=== PATIENT | female | born 1990 | race Caucasian/White ===

== ENCOUNTER → 2017-07-21 | Day surgery (SDC) | payer BC ==
[2017-07-19 23:01] VITALS: BMI 24.4
[~2017-07-21] MED LIST: GLYCOPYRROLATE 0.2 MG/ML 2 ML VIAL ONE; LACTATED RINGERS 1,000 ML IV SCH; LIDOCAINE 1% 20 ML VIAL (10MG/ML) FOR IV START INTRADERMA ONE; LIDOCAINE 1% INJ 10MG/ML (20 ML MDV) ONE; MIDAZOLAM 2 MG/2 ML VIAL ONE; PROPOFOL 10 MG/ML 20 ML VIAL IV ONE; fentaNYL (PF) 50 MCG/ML 2 ML AMP ONE
[2017-07-21 12:42] VITALS: RESP 16; TEMP 99.2
--- NOTE | 2017-07-21 14:18 | P.GSHP ---
History of Present Illness H&P Date: 07/21/17 Chief Complaint: GI Bleed This a 26-year-old female for from Dr. Vieyra. Patient presents today for EGD and colonoscopy. She's had issues rectal bleeding. - Constitutional Constitutional: Reports as per HPI Past Medical History Past Medical History: GERD/Reflux Additional Past Medical History / Comment(s): endometriosis, constipation, blood in stool, anemia, History of Any Multi-Drug Resistant Organisms: None Reported Additional Past Surgical History / Comment(s): ovarian cyst removal Past Anesthesia/Blood Transfusion Reactions: No Reported Reaction Smoking Status: Never smoker - Past Family History Mother Family Medical History: No Reported History Additional Family Medical History / Comment(s): blood clot "in her head" Medications and Allergies Home Medications Medication Instructions Recorded Confirmed Type Etonogestrel/Ethinyl Estradiol 1 each VG DIRECTED 11/17/15 07/21/17 History [Nuvaring Vaginal Ring] Ondansetron Odt [Zofran ODT] 4 mg PO TID PRN 07/18/17 07/21/17 History Allergies Allergy/AdvReac Type Severity Reaction Status Date / Time No Known Allergies Allergy Verified 07/18/17 10:47 Surgical - Exam Vital Signs Temp Pulse Resp BP Pulse Ox 99.2 F 66 16 112/71 98 07/21/17 12:34 07/21/17 12:34 07/21/17 12:34 07/21/17 12:34 07/21/17 12:34 - General well developed, no distress - Eyes PERRL - ENT normal pinna - Neck no masses - Respiratory normal expansion - Cardiovascular Rhythm: regular - Abdomen Abdomen: soft, non tender Assessment and Plan Assessment: GI bleed. We'll perform EGD and colonoscopy.
--- NOTE | 2017-07-21 14:38 | P.OP ---
Date of Procedure: 07/21/17 Preoperative Diagnosis: GI bleed Postoperative Diagnosis: Antral gastritis Normal colon No evidence of upper or lower GI bleed Procedure(s) Performed: EGD Colonoscopy Anesthesia: MAC Surgeon: Pablo Flower Pathology: other (Antrum) Condition: stable Disposition: PACU Description of Procedure: PROCEDURE: The patient was placed on the endoscopy table in the lateral position. Digital rectal examination was performed which revealed no abnormalities. Flexible colonoscope was then placed in the patient's anus and passed throughout the entire colon. The ileocecal valve was visualized. The cecum, ascending, transverse, descending and sigmoid colon were normal. The rectum was normal as well. There were no masses, polyps or diverticula noted in the entire colon. There is no evidence of any blood in the colon or rectum. Next the gastroscope placed oropharynx and passed into the esophagus into the stomach. Scope was then placed through the pylorus. The first and second portion of the duodenum appeared normal. Scope was then brought back the antrum this appeared mildly inflamed. A biopsies performed. The scope was unretroflexed and remainder stomach appeared normal. No significant hiatal hernia. The GE junction was at 40 cm. The distal esophagus appeared normal. The proximal esophagus appeared normal. Scope was withdrawn for patient. There was no evidence of upper GI bleed.
[2017-07-21 15:02] VITALS: BP 109/77; PULSE 87
== END | disposition home or self-care (01) ==
LOC: ORWHC2ENDO 11:35
PROVIDERS: ATTEND Surgery
DX: K29.50 Unspecified chronic gastritis without bleeding (principal); K21.9 Gastro-esophageal reflux disease without esophagitis; Z79.3 Long term (current) use of hormonal contraceptives
CPT/HCPCS: 81025; 88305; 88342; 45378; 43239; J2250; J2001; J3010; J2704

== ENCOUNTER → 2018-01-15 | Outpatient (CLI) | payer OTHER ==
--- NOTE | 2018-01-15 13:55 | US ---
EXAMINATION TYPE: US transvaginal DATE OF EXAM: 01/15/2018 COMPARISON: NONE CLINICAL HISTORY: 27-year-old female N92.6 Irregular menstruation, unspecified. Patient states she bl ed for around 30 days straight. Has Nuvaring control. Cramping TECHNIQUE: Transvaginal sonographic images of the pelvis were acquired. Date of LMP: Unsure of exact start date FINDINGS: Uterus: Anteverted measuring 8.3 x 3.5 x 4.3 cm Endometrial Stripe: 0.4 cm, within normal limits. Right Ovary: 4.2 x 1.9 x 2.8 cm for a volume of 11.6 mL. Follicular change is present, dominant foll icle or functional cyst measuring 2.0 cm. Left Ovary: 2.8 x 1.6 x 2.1 cm for a volume of 5.0 mL. Small follicles are present within. No evidence of adnexal abnormality or cul-de-sac free fluid. IMPRESSION: Follicular change in both ovaries. No specific abnormality seen.
== END | disposition home or self-care (01) ==
LOC: RADUSWWP 12:35
PROVIDERS: ATTEND Family Medicine
DX: N92.6 Irregular menstruation, unspecified (principal)
CPT/HCPCS: 76830

== ENCOUNTER 2018-07-05 16:55 | Emergency (ER) | payer OTHER ==
[2018-07-05 17:20] VITALS: TEMP 98.1
[2018-07-05] MEDS ORDERED: ACET/COD 300 MG/30 MG STARTER PACK 6 TAB BTL PO STA ×2 (17:28→18:26)
--- NOTE | 2018-07-05 18:01 | CT ---
EXAMINATION TYPE: CT brain clementineine wo con DATE OF EXAM: 07/05/2018 COMPARISON: 04/19/2014 HISTORY: Patient fell from 12 foot ladder yesterday. Unsure of LOC or injury. Headache and neck pain. CT DLP: 1207.3 mGycm Automated exposure control for dose reduction was used. TECHNIQUE: CT scan of the head and cervical spine are performed without contrast. FINDINGS: Ventricles of normal size. There is no mass effect nor midline shift. There is no sign of intracranial hemorrhage. The calvarium is intact. Cervical vertebra have normal spacing and alignment. Posterior elements are intact. There is no evide nce of a fracture. Skull base is intact. Prevertebral soft tissues appear normal. Facet joints are in tact. IMPRESSION: Normal CT scan of the brain. Normal CT scan cervical spine. No change.
--- NOTE | 2018-07-05 18:03 | XR ---
EXAMINATION TYPE: XR thoracic spine complete DATE OF EXAM: 07/05/2018 COMPARISON: 04/19/2014 HISTORY: Fall. Back pain. TECHNIQUE: 3 views FINDINGS: Thoracic vertebra have fairly normal spacing and alignment. Posterior elements are intact. There is no evidence of compression fracture. There is no thoracic paraspinal mass. IMPRESSION: Negative thoracic spine exam. No change. Minimal thoracic dextroscoliosis noted.
[2018-07-05] MEDS ORDERED: ORPHENADRINE 30 MG/ML 2 ML VIAL IM STA (18:21)
[2018-07-05] MEDS ORDERED: KETOROLAC 30 MG/ML 1 ML VIAL IM STA (18:21)
--- NOTE | 2018-07-05 18:26 | ED ---
Fall HPI - General Chief Complaint: Fall Stated Complaint: [facility] - fall 10' from ladder Time Seen by Provider: 07/05/18 17:20 Source: patient Mode of arrival: ambulatory - History of Present Illness Initial Comments: 27-year-old female patient presents to the emergency department today for evaluation of headache, neck pain, and the thoracic back pain. Patient was at work yesterday when she was about 10 feet up on a ladder when she fell. Patient states that she landed on her knees. She was holding a box of tiles above her head which did end up behind her smashed on the floor so she is unsure if this hit her head or not. She denies any loss of consciousness with the injury. Patient states when she woke this morning she was having pretty significant neck pain radiating up into her head causing a headache. States she is also having some thoracic type back pain. She states the pain is radiating into her shoulders but denies any pain radiation down her arms to her fingers. She denies any numbness or tingling to the upper extremities. States that she is having bilateral knee pain with this as well. States that her toes are somewhat tingly. She states that he was seen and evaluated at urgent care prior to coming in. She did have x-ray of the cervical spine and her knees which were negative for any acute bony abnormalities. They were concerned for her headache so they sent her here for further evaluation and computed tomography scan. Patient denies any chest pain, shortness of breath, dizziness, weakness, abdominal pain, nausea, vomiting, or difficulties with bowel movements or urination. She denies any chance of . - Related Data Home Medications Medication Instructions Recorded Confirmed Etonogestrel/Ethinyl Estradiol 1 ring VG Q21D 11/17/15 07/05/18 [Nuvaring Vaginal Ring] Phentermine HCl [Adipex-P] 37.5 mg PO DAILY 07/05/18 07/05/18 Previous Rx's Medication Instructions Recorded Cyclobenzaprine [Flexeril] 10 mg PO TID #15 tab 07/05/18 Ibuprofen [Motrin] 600 mg PO Q8HR PRN #30 tab 07/05/18 Allergies Allergy/AdvReac Type Severity Reaction Status Date / Time No Known Allergies Allergy Verified 07/05/18 18:00 Review of Systems ROS Statement: Those systems with pertinent positive or pertinent negative responses have been documented in the HPI. ROS Other: All systems not noted in ROS Statement are negative. Past Medical History Past Medical History: GERD/Reflux Additional Past Medical History / Comment(s): endometriosis, constipation, blood in stool, anemia, History of Any Multi-Drug Resistant Organisms: None Reported Additional Past Surgical History / Comment(s): ovarian cyst removal Past Anesthesia/Blood Transfusion Reactions: No Reported Reaction Past Psychological History: No Psychological Hx Reported Smoking Status: Never smoker Past Alcohol Use History: Occasional Past Drug Use History: None Reported - Past Family History Mother Family Medical History: No Reported History Additional Family Medical History / Comment(s): blood clot "in her head" General Exam Limitations: no limitations General appearance: alert, in no apparent distress, other (This is a well- developed, well-nourished adult female patient in no acute distress. Vital signs upon presentation reveals temperature 98.1F, pulse 107, respirations 20, blood pressure 113/84, pulse ox 100% on room air.) Eye exam: Present: normal appearance, PERRL, EOMI. Absent: scleral icterus, conjunctival injection, periorbital swelling ENT exam: Present: normal exam, normal oropharynx, mucous membranes moist Neck exam: Present: normal inspection, full ROM, other (Paraspinal tenderness in the cervical spine). Absent: tenderness, meningismus, lymphadenopathy Respiratory exam: Present: normal lung sounds bilaterally. Absent: respiratory distress, wheezes, rales, rhonchi, stridor Cardiovascular Exam: Present: regular rate, normal rhythm, normal heart sounds. Absent: systolic murmur, diastolic murmur, rubs, gallop, clicks GI/Abdominal exam: Present: soft, normal bowel sounds. Absent: distended, tenderness, guarding, rebound, rigid Back exam: Present: normal inspection, vertebral tenderness (Mild thoracic tenderness) Neurological exam: Present: alert, oriented X3, CN II-XII intact Psychiatric exam: Present: normal affect, normal mood Skin exam: Present: warm, dry, intact, normal color. Absent: rash Course Vital Signs 07/05/18 07/05/18 17:09 18:55 Temperature 98.1 F Pulse Rate 107 H 82 Respiratory 20 14 Rate Blood Pressure 113/84 117/83 O2 Sat by Pulse 100 100 Oximetry Medical Decision Making - Medical Decision Making 27-year-old female patient presents to the emergency department today for evaluation of headache and neck pain as well as thoracic spine pain after falling from a ladder yesterday afternoon. Physical examination did reveal some mild thoracic spinal tenderness. Some paraspinal tenderness over the cervical region. CT brain and C-spine were obtained and showed no acute osseous or intracranial abnormalities. Three-view x-ray of the thoracic spine was obtained and showed no evidence of osseous abnormalities including compression fracture. I did discuss findings and results with the patient. Her symptoms are consistent with cervical strain. She'll be given a prescription for anti-inflammatories and Flexeril. She is instructed to apply warm moist heat to the painful areas. She is instructed to follow-up with her primary care physician for recheck in 1-2 days. Return parameters were discussed in detail. She verbalizes understanding and agrees with this plan. - Radiology Data Radiology results: report reviewed, image reviewed Three-view x-ray of the thoracic spine is obtained. Report was reviewed in its entirety. Impression by Dr. Zheng shows negative thoracic spine exam. No change. Minimal thoracic dextroscoliosis noted. CT brain C-spine without contrast was obtained. Report was reviewed in its entirety. Impression by Dr. Zheng shows normal CT scan of the brain. Normal computed tomography scan cervical spine. No change. Disposition Clinical Impression: Cervical strain, Acute headache Disposition: HOME SELF-CARE Condition: Good Instructions: Cervical Strain (ED), Acute Headache (ED) Additional Instructions: Take medications as directed. Apply warm moist heat to the neck at least 20 minutes at a time 4 times daily. Follow-up with your primary care physician for recheck in 1-2 days. Return immediately for any new, worsening, or concerning symptoms per Prescriptions: Cyclobenzaprine [Flexeril] 10 mg PO TID #15 tab Ibuprofen [Motrin] 600 mg PO Q8HR PRN #30 tab PRN Reason: Pain Is patient prescribed a controlled substance at d/c from ED?: No Referrals: Jonathon Vieyra MD [Primary Care Provider] - 1-2 days Time of Disposition: 18:26
[2018-07-05 19:04] VITALS: BP 117/83; PULSE 82; RESP 14
== END 2018-07-05 18:55 | disposition home or self-care (01) ==
LOC: EC 16:55
DX: S16.1XXA Strain of muscle, fascia and tendon at neck level, initial encounter (principal); R51 Headache; M41.84 Other forms of scoliosis, thoracic region; M54.6 Pain in thoracic spine; M25.562 Pain in left knee; M25.561 Pain in right knee; R20.2 Paresthesia of skin; Z79.899 Other long term (current) drug therapy; Z97.5 Presence of (intrauterine) contraceptive device; W11.XXXA Fall on and from ladder, initial encounter; Y92.69 Other specified industrial and construction area as the place of occurrence of the external cause; Y99.0 Civilian activity done for income or pay
CPT/HCPCS: 72072; 72125; 70450; 99284; 96372 ×2; J2360; J1885

== ENCOUNTER 2018-11-25 19:15 | Emergency (ER) | payer BC, OTHER ==
[2018-11-25 19:34] VITALS: BP 149/77; RESP 16; TEMP 98.4
--- NOTE | 2018-11-25 19:59 | ED ---
General Adult HPI - General Chief complaint: Upper Respiratory Infection Stated complaint: Cough Time Seen by Provider: 11/25/18 19:35 Source: patient, RN notes reviewed Mode of arrival: ambulatory Limitations: no limitations - History of Present Illness Initial comments: Patient is a pleasant 28-year-old female presenting to the emergency department with cough. Symptoms haven't present over the past couple of days. Patient states cough started dry and then has had some green productive sputum. Patient states it is uncomfortable of cough. Patient does have burning in her throat. Patient states her anterior neck was swollen yesterday. No sinus congestion. Patient has had fevers and chills and myalgias. - Related Data Home Medications Medication Instructions Recorded Confirmed Etonogestrel/Ethinyl Estradiol 1 ring VG Q21D 11/17/15 07/05/18 [Nuvaring Vaginal Ring] Phentermine HCl [Adipex-P] 37.5 mg PO DAILY 07/05/18 07/05/18 Previous Rx's Medication Instructions Recorded Cyclobenzaprine [Flexeril] 10 mg PO TID #15 tab 07/05/18 Ibuprofen [Motrin] 600 mg PO Q8HR PRN #30 tab 07/05/18 Albuterol Inhaler [Ventolin Hfa 2 puff INHALATION Q4HR PRN #1 11/25/18 Inhaler] inhaler Azithromycin [Zithromax Z-pack] 250 mg PO DIRECTED #6 tab 11/25/18 Allergies Allergy/AdvReac Type Severity Reaction Status Date / Time No Known Allergies Allergy Verified 11/25/18 19:31 Review of Systems ROS Statement: Those systems with pertinent positive or pertinent negative responses have been documented in the HPI. ROS Other: All systems not noted in ROS Statement are negative. Constitutional: Reports: fever, chills Eyes: Denies: eye pain ENT: Reports: throat pain Respiratory: Reports: cough Cardiovascular: Denies: palpitations Endocrine: Reports: fatigue Gastrointestinal: Denies: abdominal pain Genitourinary: Denies: dysuria Musculoskeletal: Denies: back pain Skin: Denies: rash Neurological: Denies: confusion Past Medical History Past Medical History: GERD/Reflux Additional Past Medical History / Comment(s): endometriosis, constipation, blood in stool, anemia, History of Any Multi-Drug Resistant Organisms: None Reported Additional Past Surgical History / Comment(s): ovarian cyst removal Past Anesthesia/Blood Transfusion Reactions: No Reported Reaction Past Psychological History: No Psychological Hx Reported Smoking Status: Never smoker Past Alcohol Use History: Occasional Past Drug Use History: None Reported - Past Family History Mother Family Medical History: No Reported History Additional Family Medical History / Comment(s): blood clot "in her head" General Exam Limitations: no limitations General appearance: alert, in no apparent distress Head exam: Present: atraumatic Eye exam: Present: normal appearance, PERRL, EOMI ENT exam: Present: other (Pharyngeal erythema) Neck exam: Present: normal inspection. Absent: tenderness, meningismus, lymphadenopathy Respiratory exam: Present: normal lung sounds bilaterally Cardiovascular Exam: Present: regular rate, normal rhythm GI/Abdominal exam: Present: soft. Absent: tenderness Extremities exam: Present: normal inspection. Absent: pedal edema, calf tenderness Neurological exam: Present: alert Psychiatric exam: Present: normal affect, normal mood Skin exam: Present: normal color Course Vital Signs 11/25/18 11/25/18 19:31 20:16 Temperature 98.4 F Pulse Rate 118 H 96 Respiratory 16 Rate Blood Pressure 149/77 O2 Sat by Pulse 99 100 Oximetry Medical Decision Making - Medical Decision Making Patient reexamined and resting comfortably in bed. Patient updated on results and need for follow-up - Lab Data Lab Results 11/25/18 11/25/18 Range/Units 20:15 20:15 Influenza Type A RNA Not Detected (Not Detectd) Influenza Type B (PCR) Not Detected (Not Detectd) Group A Strep Rapid Negative (Negative) - Radiology Data Radiology results: image reviewed (Chest x-ray shows no acute process) Disposition Clinical Impression: Pharyngitis, Bronchitis Disposition: HOME SELF-CARE Condition: Stable Additional Instructions: Please follow-up with primary care physician in the next day or 2 for recheck. Return for difficulty breathing, uncontrolled fever, worsening symptoms or other concerns. [id number] Tylenol or Motrin as needed Prescriptions: Albuterol Inhaler [Ventolin Hfa Inhaler] 2 puff INHALATION Q4HR PRN #1 inhaler PRN Reason: Dyspnea Azithromycin [Zithromax Z-pack] 250 mg PO DIRECTED #6 tab Is patient prescribed a controlled substance at d/c from ED?: No Referrals: Jonathon Vieyra MD [Primary Care Provider] - 1-2 days Time of Disposition: 21:13
--- NOTE | 2018-11-25 20:12 | XR ---
EXAMINATION TYPE: XR chest 2V DATE OF EXAM: 11/25/2018 COMPARISON: EXAMINATION TYPE: XR chest 2V DATE OF EXAM: 11/25/2018 COMPARISON: NONE HISTORY: Fever TECHNIQUE: 2 views FINDINGS: Heart and mediastinum are normal. Lungs are clear. Diaphragm is normal. Bony thorax appears normal. IMPRESSION: Normal chest.
[2018-11-25 20:16] VITALS: PULSE 96
[2018-11-25] MEDS ORDERED: ACETAMINOPHEN TAB 325 MG TAB PO STA (21:10)
[2018-11-25] MEDS ORDERED: IBUPROFEN 400 MG TAB PO STA (21:11)
== END 2018-11-25 21:36 | disposition home or self-care (01) ==
LOC: EC 19:15
DX: J40 Bronchitis, not specified as acute or chronic (principal); J02.9 Acute pharyngitis, unspecified; Z79.3 Long term (current) use of hormonal contraceptives; Z79.899 Other long term (current) drug therapy
CPT/HCPCS: 71046; 87081; 87430; 87502; 99283

== ENCOUNTER → 2018-12-06 | Outpatient (CLI) | payer BC ==
[2018-12-06 13:45] LABS: Basophils % (A) 0 %; Eosinophils % (A) 1 %; HCT 38.3 % (34.0-46.0); HGB 12.6 gm/dL (11.4-16.0); Lymphocytes # (A) 2.3 k/uL (1.0-4.8); Lymphocytes % (A) 37 %; MCH 29.6 pg (25.0-35.0); MCHC 32.8 g/dL (31.0-37.0); MCV 90.2 fL (80.0-100.0); Monocytes # (A) 0.3 k/uL (0-1.0); Monocytes % (A) 6 %; Neutrophils # (A) 3.4 k/uL (1.3-7.7); Neutrophils % (A) 55 %; Platelet Count 338 k/uL (150-450); RBC 4.25 m/uL (3.80-5.40); RDW 12.7 % (11.5-15.5); WBC 6.2 k/uL (3.8-10.6)
[2018-12-06 13:51] LABS: ALT 20 U/L (9-52); AST 24 U/L (14-36); Albumin 4.5 g/dL (3.5-5.0); Alkaline Phosphatase 61 U/L (38-126); Amylase 72 U/L (30-110); Anion Gap 11 mmol/L; Blood Urea Nitrogen 14 mg/dL (7-17); Calcium 9.3 mg/dL (8.4-10.2); Carbon Dioxide 24 mmol/L (22-30); Chloride 104 mmol/L (98-107); Glucose 70 mg/dL (74-99); Lipase 94 U/L (23-300); Sodium 139 mmol/L (137-145); Total Bilirubin 0.7 mg/dL (0.2-1.3); Total Protein 7.7 g/dL (6.3-8.2)
[2018-12-06 13:57] LABS: Potassium 4.5 mmol/L (3.5-5.1)
--- NOTE | 2018-12-06 15:06 | CT ---
EXAMINATION TYPE: CT abdomen pelvis w con DATE OF EXAM: 12/06/2018 COMPARISON: 07/05/2017 INDICATION: Right upper quadrant pain lower abdominal pain vomiting diarrhea DLP: 392.5 mGycm, Automated exposure control for dose reduction was used. CONTRAST: 100 mL of Isovue 300. Study performed without Oral Contrast TECHNIQUE: Axial images were obtained from above the diaphragm to the pubic rami in the axial plane a t 5 mm thick sections. Reconstructed images are reviewed on the computer in the coronal plane. FINDINGS: Limited CT sections are obtained the lung bases. The lung bases are clear. CT ABDOMEN: Liver: Normal Spleen: Normal Pancreas: Normal Adrenal glands: The adrenal glands are normal. Gallbladder: Normal Kidneys: No masses are evident. No hydronephrosis is present. No cysts are present. Delayed images were obtained through the kidneys, which remain unremarkable. Aorta: Normal Inferior vena cava: Normal. CT PELVIS: Loops of bowel within the abdomen and pelvis are normal. There are loops of bowel which are incom pletely distended or lack oral contrast limiting their evaluation. Appendix: Normal as visualized. No suspicious inflammatory changes are evident. Urinary bladder: Normal. Genitourinary structures: Uterus is normal. Adnexal regions are clear. A suspected contraceptive ring is within the vaginal vault. Osseous structures: No suspicious lytic or sclerotic lesions. IMPRESSIONS: 1. No suspicious abnormality to account for right upper right lower quadrant pain and vomiting
== END | disposition home or self-care (01) ==
LOC: RADCTMAIN 12:28
PROVIDERS: ATTEND Nurse Practitioner Family
DX: R10.11 Right upper quadrant pain (principal); R10.31 Right lower quadrant pain; R11.2 Nausea with vomiting, unspecified; R50.9 Fever, unspecified; R63.0 Anorexia; R19.4 Change in bowel habit
CPT/HCPCS: 80053; 82150; 83690; 85025; 74177; 36415; Q9967

== ENCOUNTER → 2018-12-15 | Outpatient (CLI) | payer BC ==
--- NOTE | 2018-12-15 10:51 | NM ---
EXAMINATION TYPE: NM hepatobiliary w EF DATE OF EXAM: 12/15/2018 COMPARISON: NONE HISTORY: Right upper quadrant pain TECHNIQUE: After the intravenous administration of 4.9 mCi Tc 99m Mebrofenin hepatobiliary scintigrap hy is performed. Immediate images post injection. FINDINGS: There is satisfactory initial accumulation of tracer by the liver. The gallbladder is visualized wit hin 12 minutes. The small bowel activity is noted within 14 minutes. At one hour 8 ounces of oral e nsure plus is given to mimic CCK and gallbladder ejection fraction is calculated at 61 %, in the norm al range. Therefore there is no scintigraphic evidence of cystic or common bile duct obstruction to suggest acute cholecystitis or gallbladder dyskinesia. IMPRESSION: NORMAL NUCLEAR MEDICINE HEPATOBILIARY SCAN.
== END | disposition home or self-care (01) ==
LOC: RADNMMAIN 08:50
PROVIDERS: ATTEND Family Medicine
DX: R11.2 Nausea with vomiting, unspecified (principal); R10.11 Right upper quadrant pain
CPT/HCPCS: 78226; A9537

== ENCOUNTER → 2019-01-23 | Outpatient (CLI) | payer BC ==
--- NOTE | 2019-01-23 10:02 | US ---
EXAMINATION TYPE: US transvaginal DATE OF EXAM: 01/23/2019 COMPARISON: NONE CLINICAL HISTORY: R10.84 Abdominal Pain. Nuva ring, endometriosis, pelvic pain TECHNIQUE: Transvaginal (TV). Date of LMP: unknown EXAM MEASUREMENTS: Uterus: 7.0 x 2.9 x 4.8 cm Endometrial Stripe: 0.2 cm Right Ovary: 2.7 x 1.2 x 1.6 cm Left Ovary: 2.6 x 1.7 x 1.6 cm 1. Uterus: Anteverted 2. Endometrium: wnl 3. Right Ovary: follicles noted 4. Left Ovary: follicles noted 5. Bilateral Adnexa: wnl 6. Posterior cul-de-sac: wnl IMPRESSION: Physiologic follicular changes of the ovaries. Otherwise unremarkable pelvic ultrasound.
== END | disposition home or self-care (01) ==
LOC: RADUSWWP 08:54
PROVIDERS: ATTEND Family Medicine
DX: N83.8 Other noninflammatory disorders of ovary, fallopian tube and broad ligament (principal); R10.84 Generalized abdominal pain
CPT/HCPCS: 76830

== ENCOUNTER → 2019-04-25 | Outpatient (CLI) | payer BC ==
--- NOTE | 2019-04-25 09:41 | MR ---
EXAMINATION TYPE: MR brain wo/w con DATE OF EXAM: 04/25/2019 COMPARISON: CT 04/19/2014 HISTORY: Headache /Vertigo TECHNIQUE: Multiplanar, multisequence images of the brain and brainstem is performed without and with IV contras t, utilizing 6 mL intravenous Gadavist . FINDINGS: Diffusion weighted images demonstrate no evidence of a recent infarct or other diffusion ab normality. There is no extra-axial fluid collection or significant white matter signal abnormality. The ventricular system and cisternal spaces are normal in size and appearance. The brain volume is age appropriate. Midline structures demonstrate normal morphology. Cerebellar tonsils are low-lying in position at the level the foramen magnum. No tonsillar beaking. Sella turcica has a normal appearance. No orbital fl attening. No cerebellopontine angle mass.. Post contrast images demonstrate no abnormal enhancement. The dural venous sinuses appear patent. Changes of mild chronic sinusitis. IMPRESSION: 1. Low-lying cerebellar tonsils at the level the foramen magnum. No tonsillar beaking.
== END | disposition home or self-care (01) ==
LOC: RADMRIMAIN 08:16
PROVIDERS: ATTEND Nurse Practitioner Family
DX: J35.8 Other chronic diseases of tonsils and adenoids (principal); R42 Dizziness and giddiness
CPT/HCPCS: 70553; A9585

== ENCOUNTER 2019-04-28 09:07 | Emergency (ER) | payer BC ==
[2019-04-28] MEDS ORDERED: ONDANSETRON 4 MG/2 ML VIAL IVP STA (09:52)
[2019-04-28] MEDS ORDERED: MORPHINE SULFATE 4 MG/ML SYRINGE IV STA (09:52)
[2019-04-28] MEDS ORDERED: SODIUM CHLORIDE 0.9% 1,000 ML IV STA (09:52)
[2019-04-28] MEDS ORDERED: KETOROLAC 30 MG/ML 1 ML VIAL IVP STA (09:52)
[2019-04-28] MEDS ORDERED: PANTOPRAZOLE 40 MG/10 ML VIAL IVP STA (09:52)
[2019-04-28 10:16] LABS: Appearance,Urine Clear (Clear); Bilirubin,Urine Negative (Negative); Blood,Urine Negative (Negative); Color,Urine Yellow; Glucose,Urine (UA) Negative (Negative); Ketones,Urine 1+ (Negative); Leukocyte Esterase,Urine Negative (Negative); Nitrite,Urine Negative (Negative); PH, Urine 6.5 (5.0-8.0); Protein,Urine Trace (Negative); Specific Gravity,Urine 1.026 (1.001-1.035); Urobilinogen,Urine <2.0 mg/dL (<2.0)
[2019-04-28 10:24] LABS: Basophils % (A) 0 %; Eosinophils % (A) 1 %; HCT 38.4 % (34.0-46.0); HGB 12.7 gm/dL (11.4-16.0); Lymphocytes # (A) 2.1 k/uL (1.0-4.8); Lymphocytes % (A) 29 %; MCH 30.8 pg (25.0-35.0); MCHC 33.1 g/dL (31.0-37.0); Mean Platelet Volume 7.2; Monocytes # (A) 0.4 k/uL (0-1.0); Monocytes % (A) 6 %; Neutrophils # (A) 4.6 k/uL (1.3-7.7); Neutrophils % (A) 62 %; Platelet Count 282 k/uL (150-450); RBC 4.13 m/uL (3.80-5.40); RDW 12.7 % (11.5-15.5); WBC 7.4 k/uL (3.8-10.6)
[2019-04-28 10:33] LABS: ALT 23 U/L (9-52); AST 23 U/L (14-36); African American GFR (CKD) >90 (>60 ml/min/1.73 sqM); Albumin 4.2 g/dL (3.5-5.0); Alkaline Phosphatase 61 U/L (38-126); Amylase 75 U/L (30-110); Anion Gap 13 mmol/L; Blood Urea Nitrogen 18 mg/dL (7-17); Calcium 9.6 mg/dL (8.4-10.2); Carbon Dioxide 20 mmol/L (22-30); Chloride 106 mmol/L (98-107); Glucose 91 mg/dL (74-99); Potassium 3.9 mmol/L (3.5-5.1); Sodium 139 mmol/L (137-145); Total Bilirubin 0.6 mg/dL (0.2-1.3); Total Protein 7.5 g/dL (6.3-8.2)
[2019-04-28 10:42] LABS: D-Dimer 0.2 mg/L FEU (<0.60); INR 0.9 (<1.2); Partial Thromboplastin Time 27.4 sec (22.0-30.0); Prothrombin Time 9.9 sec (9.0-12.0)
--- NOTE | 2019-04-28 10:49 | ED ---
Abdominal Pain HPI - General Chief Complaint: Abdominal Pain Stated Complaint: Abd Pain, Vomiting Time Seen by Provider: 04/28/19 09:29 Source: patient, RN notes reviewed, old records reviewed Mode of arrival: ambulatory Limitations: no limitations - History of Present Illness Initial Comments: Patient is a 28-year-old female presents emergency department today for complaints of right upper quadrant abdominal pain, rapid heart rate, nausea and abdominal pain for the past few days. She reports she's been having similar pains for the past year. She states she's been evaluated by multiple physicians, and had been inconclusive for her answers. Patient states she takes Protonix and Zofran offered but states that those 2 medicines still cause her to be nauseated. She states that she has felt this rapid heart rate, and complains of shortness of breath. Patient states that pain sometimes is worse with eating. - Related Data Home Medications Medication Instructions Recorded Confirmed Etonogestrel/Ethinyl Estradiol 1 ring VG Q21D 11/17/15 04/28/19 [Nuvaring Vaginal Ring] Wzaibfm-Jzrr-Oohp [id number] 4 tab PO Q4HR PRN 04/28/19 04/28/19 [Excedrin] Previous Rx's Medication Instructions Recorded Famotidine [Pepcid] 40 mg PO BID #20 tab 04/28/19 Allergies Allergy/AdvReac Type Severity Reaction Status Date / Time No Known Allergies Allergy Verified 04/28/19 09:49 Review of Systems ROS Statement: Those systems with pertinent positive or pertinent negative responses have been documented in the HPI. ROS Other: All systems not noted in ROS Statement are negative. Past Medical History Past Medical History: GERD/Reflux Additional Past Medical History / Comment(s): endometriosis, constipation, blood in stool, anemia, History of Any Multi-Drug Resistant Organisms: None Reported Additional Past Surgical History / Comment(s): ovarian cyst removal Past Anesthesia/Blood Transfusion Reactions: No Reported Reaction Past Psychological History: No Psychological Hx Reported Smoking Status: Never smoker Past Alcohol Use History: Occasional Past Drug Use History: None Reported - Past Family History Mother Family Medical History: No Reported History Additional Family Medical History / Comment(s): blood clot "in her head" General Exam - General Exam Comments Initial Comments: 28-year-old female. Alert and oriented. is very anxious tearful. Alert and oriented hayley x 3, . Ambulating without difficulty. Skin: Good turgor, no rash, unusual bruising or prominent lesions Hair: Normal texture and distribution. HEENT: Head: Normocephalic, atraumatic, no visible or palpable masses, depressions, or scaring. Eyes: Visual acuity intact, conjunctiva clear, sclera non-icteric, EOM intact, PERRL. Ears: EACs clear, TMs translucent & cone of light visualized. hearing intact. Nose: No external lesions, mucosa non-inflamed, septum and turbinates normal Mouth: Mucous membranes moist, no mucosal lesions. Teeth/Gums: No obvious caries or periodontal disease. No gingival inflammation or significant resorption. Pharynx: Mucosa non-inflamed, no tonsillar hypertrophy or exudate Neck: Supple, without lesions, bruits, or adenopathy, thyroid non-enlarged and n on-tender Heart: No cardiomegaly or thrills; regular rate and rhythm, no murmur or gallop Lungs: Clear to auscultation and percussion Abdomen: Bowel sounds normal, minimal right upper quadrant tenderness. Back: Spine normal without deformity or tenderness, no CVA tenderness Extremities: No amputations or deformities, cyanosis, edema or varicosities, peripheral pulses intact Musculoskeletal: Normal gait and station. No misalignment, asymmetry, crepitation, defects, tenderness, masses, effusions, decreased range of motion, instability, atrophy or abnormal strength or tone in the head, neck, spine, ribs, pelvis or extremities. Neurologic: CN 2-12 normal. Sensation to pain, touch, and proprioception normal. DTRs normal in upper and lower extremities. No pathologic reflexes. Psychiatric: Oriented X3, intact recent and remote memory, judgment and insight, normal mood and affect. Limitations: no limitations Course Vital Signs 04/28/19 04/28/19 04/28/19 09:22 12:55 13:42 Temperature 98.4 F 97.8 F Pulse Rate 120 H 125 H 75 Respiratory 18 20 16 Rate Blood Pressure 133/81 136/83 101/57 O2 Sat by Pulse 100 100 100 Oximetry - Reevaluation(s) Reevaluation #1: 04/28/19 13:33 Patient seems quite anxious from time to time. Was given Ativan and does appear to be resting comfortably after this. Medical Decision Making - Medical Decision Making This is a 28-year-old female, she does appear quite anxious. She presents today for worsening right upper quadrant abdominal pain over the past 3 days. Patient states she occasionally has shortness of breath, feels her heart rate is racing. Patient symptoms of this evening they were related to anxiety attack and panic attack. Patient has had a full evaluation including lab work ultrasound and x-rays. I reviewed patient's computed tomography scan from last week. Lab work was reviewed and unremarkable. KUB and chest x-ray were normal. D-dimer and EKG are negative for any acute changes. CKMB is negative. Patient's ultrasound of the gallbladder did demonstrate some right upper quadrant tenderness but no signs of abnormality's within the gallbladder. I discussed these findings with the Patient. Patient may need to be evaluated by a surgeon this her pain does seem to be similar to barely or biliary colic. I discussed that she also should be started on maintenance medication and diet changes to see if this would help. All questions were answered and return parameters were discussed. - Lab Data Result diagrams: 04/28/19 10:05 04/28/19 10:05 Lab Results 04/28/19 04/28/19 04/28/19 Range/Units 10:05 10:05 10:05 WBC (3.8-10.6) k/uL RBC (3.80-5.40) m/uL Hgb (11.4-16.0) gm/dL Hct (34.0-46.0) % MCV (80.0-100.0) fL MCH (25.0-35.0) pg MCHC (31.0-37.0) g/dL RDW (11.5-15.5) % Plt Count (150-450) k/uL Neutrophils % % Lymphocytes % % Monocytes % % Eosinophils % % Basophils % % Neutrophils # (1.3-7.7) k/uL Lymphocytes # (1.0-4.8) k/uL Monocytes # (0-1.0) k/uL Eosinophils # (0-0.7) k/uL Basophils # (0-0.2) k/uL PT (9.0-12.0) sec INR (<1.2) APTT (22.0-30.0) sec D-Dimer (<0.60) mg/L FEU Sodium 139 (137-145) mmol/L Potassium 3.9 (3.5-5.1) mmol/L Chloride 106 (98-107) mmol/L Carbon Dioxide 20 L (22-30) mmol/L Anion Gap 13 mmol/L BUN 18 H (7-17) mg/dL Creatinine 0.66 (0.52-1.04) mg/dL Est GFR (CKD-EPI)AfAm >90 (>60 ml/min/1.73 sqM) Est GFR (CKD-EPI)NonAf >90 (>60 ml/min/1.73 sqM) Glucose 91 (74-99) mg/dL Calcium 9.6 (8.4-10.2) mg/dL Total Bilirubin 0.6 (0.2-1.3) mg/dL AST 23 (14-36) U/L ALT 23 (9-52) U/L Alkaline Phosphatase 61 (38-126) U/L CK-MB (CK-2) (0.0-2.4) ng/mL Total Protein 7.5 (6.3-8.2) g/dL Albumin 4.2 (3.5-5.0) g/dL Amylase 75 (30-110) U/L Lipase 94 (23-300) U/L Urine Color Yellow Urine Appearance Clear (Clear) Urine pH 6.5 (5.0-8.0) Ur Specific [place] 1.026 (1.001-1.035) Urine Protein Trace H (Negative) Urine Glucose (UA) Negative (Negative) Urine Ketones 1+ H (Negative) Urine Blood Negative (Negative) Urine Nitrite Negative (Negative) Urine Bilirubin Negative (Negative) Urine Urobilinogen <2.0 (<2.0) mg/dL Ur Leukocyte Esterase Negative (Negative) Urine HCG, Qual Not Detected (Not Detectd) 04/28/19 04/28/19 04/28/19 Range/Units 10:05 10:05 10:05 WBC 7.4 (3.8-10.6) k/uL RBC 4.13 (3.80-5.40) m/uL Hgb 12.7 (11.4-16.0) gm/dL Hct 38.4 (34.0-46.0) % MCV 93.0 (80.0-100.0) fL MCH 30.8 (25.0-35.0) pg MCHC 33.1 (31.0-37.0) g/dL RDW 12.7 (11.5-15.5) % Plt Count 282 (150-450) k/uL Neutrophils % 62 % Lymphocytes % 29 % Monocytes % 6 % Eosinophils % 1 % Basophils % 0 % Neutrophils # 4.6 (1.3-7.7) k/uL Lymphocytes # 2.1 (1.0-4.8) k/uL Monocytes # 0.4 (0-1.0) k/uL Eosinophils # 0.0 (0-0.7) k/uL Basophils # 0.0 (0-0.2) k/uL PT 9.9 (9.0-12.0) sec INR 0.9 (<1.2) APTT 27.4 (22.0-30.0) sec D-Dimer 0.20 (<0.60) mg/L FEU Sodium (137-145) mmol/L Potassium (3.5-5.1) mmol/L Chloride (98-107) mmol/L Carbon Dioxide (22-30) mmol/L Anion Gap mmol/L BUN (7-17) mg/dL Creatinine (0.52-1.04) mg/dL Est GFR (CKD-EPI)AfAm (>60 ml/min/1.73 sqM) Est GFR (CKD-EPI)NonAf (>60 ml/min/1.73 sqM) Glucose (74-99) mg/dL Calcium (8.4-10.2) mg/dL Total Bilirubin (0.2-1.3) mg/dL AST (14-36) U/L ALT (9-52) U/L Alkaline Phosphatase (38-126) U/L CK-MB (CK-2) <0.2 (0.0-2.4) ng/mL Total Protein (6.3-8.2) g/dL Albumin (3.5-5.0) g/dL Amylase (30-110) U/L Lipase (23-300) U/L Urine Color Urine Appearance (Clear) Urine pH (5.0-8.0) Ur Specific [place] (1.001-1.035) Urine Protein (Negative) Urine Glucose (UA) (Negative) Urine Ketones (Negative) Urine Blood (Negative) Urine Nitrite (Negative) Urine Bilirubin (Negative) Urine Urobilinogen (<2.0) mg/dL Ur Leukocyte Esterase (Negative) Urine HCG, Qual (Not Detectd) EKG shows normal sinus rhythm with sinus arrhythmia, cannot rule out anterior infarct age undetermined. Ventricular rate of 92 bpm. MS interval is 142 ms. QS duration is 72 ms. QT QTc is 374/462 ms. No evidence of ST elevation. 04/29/19 14:40 - Radiology Data Radiology results: report reviewed Normal chest x-ray. KUB x-ray is shows no obstructive bowel gas pattern. Ultrasound shows no evidence of cholelithiasis. There is a probable hemangioma within the liver. There is no overt upper quadrant tenderness. A gallbladder all was unremarkable, measures 2 mm. Distal common bile duct measures 4 mm. The meningioma measures 1.4 x 1 cm echogenic focus within the right lower lip are really clear presenting small hemangioma. Disposition Clinical Impression: Right sided abdominal pain Disposition: HOME SELF-CARE Condition: Good Instructions (If sedation given, give patient instructions): Abdominal Pain (ED) Additional Instructions: Please use medication as discussed. Please follow up with family doctor if symptoms have not improved over the next two days. Please return to the emergency room if your symptoms increase or worsen or for any other concerns. Prescriptions: Famotidine [Pepcid] 40 mg PO BID #20 tab Is patient prescribed a controlled substance at d/c from ED?: No Referrals: None,Stated [Primary Care Provider] - 1-2 days Wolf Cho MD [Medical Doctor] - 1-2 days Charlene Hardin MD [STAFF PHYSICIAN] - 1-2 days Time of Disposition: 13:32
--- NOTE | 2019-04-28 11:12 | XR ---
EXAMINATION TYPE: XR KUB , 2 VIEWS DATE OF EXAM ORDERED: 04/28/2019 HISTORY: abdominal pain. COMPARISON: Previous study dated 11/17/2015. FINDINGS: The lung bases are clear. Within the abdomen, the abdominal gas pattern is normal. There is no evidence of obstruction or free air. No unusual calcifications are seen. IMPRESSION: NO ACUTE INTRA-ABDOMINAL ABNORMALITY.
--- NOTE | 2019-04-28 11:13 | XR ---
EXAMINATION TYPE: XR chest 2V DATE OF EXAM ORDERED: 04/28/2019 HISTORY: abdominal pain. REFERENCE: Previous study dated 11/25/2018. FINDINGS: The lungs are clear. Pleural spaces are clear. Heart size is normal. IMPRESSION: NORMAL CHEST.
[2019-04-28] MEDS ORDERED: METOCLOPRAMIDE 5 MG/ML 2 ML VIAL IVP STA (12:39)
[2019-04-28 12:56] VITALS: TEMP 97.8
--- NOTE | 2019-04-28 13:00 | US ---
EXAMINATION TYPE: US gallbladder DATE OF EXAM: 04/28/2019 COMPARISON: NONE CLINICAL HISTORY: pain. RUQ pain on and off for over 1 year EXAM MEASUREMENTS: Liver Length: 14.6 cm Gallbladder Wall: 0.2 cm CBD: 0.4 cm Right Kidney: 9.9 x 5.0 x 4.6 cm Pancreas: wnl Liver: wnl Gallbladder: wnl Evidence for sonographic Smiley's sign: YES CBD: wnl Right Kidney: wnl Limited views of the pancreas are unremarkable. The liver is normal in size without evidence of biliary dilatation. There is a 1.4 x 1 cm echogenic f ocus in the right lobe of the liver likely representing a small hemangioma. The gallbladder is unremarkable. The gallbladder wall measures 2 mm. The distal common hepatic duct m easures 4 mm. There is right upper quadrant tenderness. The right kidney is unremarkable. IMPRESSION: 1. No evidence of cholelithiasis. 2. Probable hemangioma within the liver. 3. Right upper quadrant tenderness.
[2019-04-28] MEDS ORDERED: LORazepam 2 MG/ML INJ IV STA (13:01)
[2019-04-28 13:44] VITALS: BP 101/57; PULSE 75; RESP 16
== END 2019-04-28 13:45 | disposition home or self-care (01) ==
LOC: EC 09:07
DX: R10.11 Right upper quadrant pain (principal); R11.0 Nausea; R06.02 Shortness of breath; R00.0 Tachycardia, unspecified; Z32.02 Encounter for pregnancy test, result negative; Z79.3 Long term (current) use of hormonal contraceptives
CPT/HCPCS: 36415; 93005; 85379; 80053; 82150; 82553; 83690; 85025; 85610; 85730; 81003; 81025; 71046; 74018; 76705; 99285; 96374; 96375 ×5; 96361 ×2; J2060; J2270; J2765; J2405; J1885; C9113

== ENCOUNTER 2019-05-03 03:05 | Observation (INO) | payer BC ==
--- NOTE | 2019-05-03 03:38 | ED ---
General Adult HPI - General Source: patient, RN notes reviewed Mode of arrival: ambulatory Limitations: no limitations <Jermaine Paulino - Last Filed: 05/03/19 03:47> <Grupo Reyes - Last Filed: 05/03/19 06:56> - General Chief complaint: Abdominal Pain Stated complaint: Recheck Abd Pain, Vomiting - History of Present Illness Initial comments: 28-year-old female with a past medical history endometriosis, chronic constipation, GERD, anemia presents to the emergency department for abdominal pain. This is patient's third visit in the emergency department this week for this complaint. Patient states she has had "bowel issues" for over 2 years now. States over the past 2 weeks she has had pain in her upper abdomen. States that this started in the right upper quadrant and then migrated to the left upper quadrant. Patient states the pain is now in the epigastric area. States she has had nausea and vomiting which she feels like is worsening instead of improving. She denies fevers but admits to chills. States that she has an appointment scheduled with surgeon Dr. Hardin on May 21 but does not feel she can wait that long.Patient has no other complaints at this time including shortness of breath, chest pain, headache, or visual changes. (Jermaine Paulino) - Related Data Home Medications Medication Instructions Recorded Confirmed Etonogestrel/Ethinyl Estradiol 1 ring VG Q21D 11/17/15 05/01/19 [Nuvaring Vaginal Ring] Ondansetron HCl [Zofran] 4 mg PO TID PRN 05/01/19 05/01/19 Previous Rx's Medication Instructions Recorded Dicyclomine [Bentyl] 20 mg PO TID #30 tablet 05/01/19 Metoclopramide [Reglan] 10 mg PO TID PRN #15 tab 05/01/19 Ondansetron Odt [Zofran Odt] 4 mg PO Q8HR PRN #10 tab 05/01/19 Allergies Allergy/AdvReac Type Severity Reaction Status Date / Time No Known Allergies Allergy Verified 05/03/19 03:16 Review of Systems ROS Other: All systems not noted in ROS Statement are negative. <Jermaine Paulino - Last Filed: 05/03/19 03:47> ROS Other: All systems not noted in ROS Statement are negative. <RicoGrupo - Last Filed: 05/03/19 06:56> ROS Statement: Those systems with pertinent positive or pertinent negative responses have been documented in the HPI. Past Medical History Past Medical History: GERD/Reflux Additional Past Medical History / Comment(s): endometriosis, constipation, blood in stool, anemia, History of Any Multi-Drug Resistant Organisms: None Reported Additional Past Surgical History / Comment(s): ovarian cyst removal Past Anesthesia/Blood Transfusion Reactions: No Reported Reaction Past Psychological History: No Psychological Hx Reported Smoking Status: Never smoker Past Alcohol Use History: Occasional Past Drug Use History: None Reported - Past Family History Mother Family Medical History: No Reported History Additional Family Medical History / Comment(s): blood clot "in her head" <Jermaine Paulino - Last Filed: 05/03/19 03:47> General Exam Limitations: no limitations General appearance: alert, in no apparent distress Head exam: Present: atraumatic, normocephalic, normal inspection Eye exam: Present: normal appearance, PERRL, EOMI. Absent: scleral icterus, conjunctival injection, periorbital swelling ENT exam: Present: normal exam, mucous membranes moist Neck exam: Present: normal inspection, full ROM. Absent: tenderness, meningismus, lymphadenopathy Respiratory exam: Present: normal lung sounds bilaterally. Absent: respiratory distress, wheezes, rales, rhonchi, stridor Cardiovascular Exam: Present: regular rate, normal rhythm, normal heart sounds. Absent: systolic murmur, diastolic murmur, rubs, gallop, clicks GI/Abdominal exam: Present: soft, tenderness (Tenderness noted in the right and left upper quadrant as well as epigastric area. No lower abdominal tenderness.), normal bowel sounds. Absent: distended, guarding, rebound, rigid Neurological exam: Present: alert <Jermaine Paulino - Last Filed: 05/03/19 03:47> Course Vital Signs 05/03/19 05/03/19 03:14 06:03 Temperature 97.9 F Pulse Rate 105 H 108 H Respiratory 18 20 Rate Blood Pressure 132/84 123/90 O2 Sat by Pulse 99 99 Oximetry Medical Decision Making <Jermaine Paulino - Last Filed: 05/03/19 03:47> - Lab Data Result diagrams: 05/03/19 04:20 05/03/19 04:20 <Grupo Reyes - Last Filed: 05/03/19 06:56> - Medical Decision Making Patient presents with stable vitals. Patient does have mild upper abdominal tenderness that is generalized in nature. No guarding. Patient has 2 previous visits this week which were reviewed. Patient was diagnosed with fecal impact ion, abdominal pain, nausea and vomiting. X-ray of the abdomen performed on April 28 showed no acute intra-abdominal abnormality. No evidence of obstruction. Chest x-ray showed a normal chest. Ultrasound of the right upper quadrant was performed on 04/28/2019 as well which showed no evidence of cholelithiasis. Patient was discharged home when she returned 3 days later and a computed tomography scan was performed on 05/01/2019. This demonstrated moderate fecal retention without evidence of obstruction. Care signed out to Dr reyes at 0400 pending laboratory and imaging results. (Jermaine Paulino) - Lab Data Lab Results 05/03/19 05/03/19 Range/Units 04:20 04:20 WBC 10.7 H (3.8-10.6) k/uL RBC 4.04 (3.80-5.40) m/uL Hgb 11.8 (11.4-16.0) gm/dL Hct 37.5 (34.0-46.0) % MCV 92.8 (80.0-100.0) fL MCH 29.1 (25.0-35.0) pg MCHC 31.4 (31.0-37.0) g/dL RDW 13.1 (11.5-15.5) % Plt Count 355 (150-450) k/uL Neutrophils % 74 % Lymphocytes % 21 % Monocytes % 4 % Eosinophils % 1 % Basophils % 0 % Neutrophils # 7.9 H (1.3-7.7) k/uL Lymphocytes # 2.2 (1.0-4.8) k/uL Monocytes # 0.4 (0-1.0) k/uL Eosinophils # 0.1 (0-0.7) k/uL Basophils # 0.0 (0-0.2) k/uL Sodium 140 (137-145) mmol/L Potassium 4.0 (3.5-5.1) mmol/L Chloride 107 (98-107) mmol/L Carbon Dioxide 22 (22-30) mmol/L Anion Gap 11 mmol/L BUN 13 (7-17) mg/dL Creatinine 0.74 (0.52-1.04) mg/dL Est GFR (CKD-EPI)AfAm >90 (>60 ml/min/1.73 sqM) Est GFR (CKD-EPI)NonAf >90 (>60 ml/min/1.73 sqM) Glucose 95 (74-99) mg/dL Calcium 9.0 (8.4-10.2) mg/dL Total Bilirubin 0.5 (0.2-1.3) mg/dL AST 25 (14-36) U/L ALT 21 (9-52) U/L Alkaline Phosphatase 52 (38-126) U/L Total Protein 7.4 (6.3-8.2) g/dL Albumin 4.2 (3.5-5.0) g/dL Amylase 122 H (30-110) U/L Lipase 385 H (23-300) U/L Disposition <Jermaine Paulino - Last Filed: 05/03/19 03:47> Is patient prescribed a controlled substance at d/c from ED?: No <Grupo Reyes - Last Filed: 05/03/19 06:56> Clinical Impression: Abdominal pain Disposition: ADMITTED IP TO THIS HOSP Condition: Fair Instructions (If sedation given, give patient instructions): Abdominal Pain (ED) Referrals: None,Stated [Primary Care Provider] - 1-2 days
[2019-05-03] MEDS ORDERED: SODIUM CHLORIDE 0.9% 1,000 ML IV STA (03:42)
[2019-05-03] MEDS ORDERED: ONDANSETRON 4 MG/2 ML VIAL IVP STA (03:42)
[2019-05-03] MEDS ORDERED: FAMOTIDINE 20 MG/2 ML VIAL IV STA (03:42)
[2019-05-03] MEDS: MAG HYDROX/AL HYDROX/SIMETH 30 ML, HYOSCYAMINE ELIXIR 10 ML, LIDOCAINE VISCOUS 2% 10 ML PO STA ×6 (04:33→05:07)
[2019-05-03 04:37] LABS: ALT 21 U/L (9-52); AST 25 U/L (14-36); African American GFR (CKD) >90 (>60 ml/min/1.73 sqM); Albumin 4.2 g/dL (3.5-5.0); Alkaline Phosphatase 52 U/L (38-126); Amylase 122 U/L (30-110); Anion Gap 11 mmol/L; Basophils % (A) 0 %; Blood Urea Nitrogen 13 mg/dL (7-17); Carbon Dioxide 22 mmol/L (22-30); Chloride 107 mmol/L (98-107); Eosinophils # (A) 0.1 k/uL (0-0.7); Eosinophils % (A) 1 %; Glucose 95 mg/dL (74-99); HCT 37.5 % (34.0-46.0); HGB 11.8 gm/dL (11.4-16.0); Lymphocytes # (A) 2.2 k/uL (1.0-4.8); Lymphocytes % (A) 21 %; MCH 29.1 pg (25.0-35.0); MCHC 31.4 g/dL (31.0-37.0); MCV 92.8 fL (80.0-100.0); Mean Platelet Volume 7.1; Monocytes # (A) 0.4 k/uL (0-1.0); Monocytes % (A) 4 %; Neutrophils # (A) 7.9 k/uL (1.3-7.7); Neutrophils % (A) 74 %; Non-African American GFR(CKD) >90 (>60 ml/min/1.73 sqM); Platelet Count 355 k/uL (150-450); RBC 4.04 m/uL (3.80-5.40); RDW 13.1 % (11.5-15.5); Sodium 140 mmol/L (137-145); Total Bilirubin 0.5 mg/dL (0.2-1.3); Total Protein 7.4 g/dL (6.3-8.2); WBC 10.7 k/uL (3.8-10.6)
[2019-05-03] MEDS ORDERED: DICYCLOMINE 10 MG/ML 2 ML AMP IM STA (05:45)
[2019-05-03] MEDS ORDERED: HYDROmorphone 1 MG/ML 1 ML SYRINGE IVP STA (05:50)
[2019-05-03] MEDS ORDERED: PROMETHAZINE INJ 25 MG in SODIUM CHLORIDE 0.9% 50 ML IVPB ONE (06:00)
--- NOTE | 2019-05-03 06:41 | XR ---
EXAM: XR Abdomen, 1 View CLINICAL HISTORY: ITS.REASON XR Reason: abdominal pain TECHNIQUE: Frontal supine view of the abdomen/pelvis. COMPARISON: 04/28/19 Impression: Gastrointestinal tract: No dilatation. Nonspecific prominent bowel loops in the lower abdomen/pelvis. No free air. Bones/joints: No acute fracture. No dislocation.
[2019-05-03] MEDS ORDERED: HYDROmorphone 1 MG/ML 1 ML SYRINGE IVP PRN (06:56)
[2019-05-03] MEDS ORDERED: NALOXONE 0.4 MG/ML 1 ML VIAL IV PRN (06:56)
[2019-05-03] MEDS: SODIUM CHLORIDE 0.9% 1,000 ML IV SCH ×2 (07:53→17:46)
[2019-05-03 08:47] VITALS: BMI 23.7
[2019-05-03] MEDS ORDERED: FAMOTIDINE 20 MG TAB PO SCH (09:00)
[2019-05-03] MEDS: HYDROmorphone 0.5 MG/0.5 ML SYRINGE IVP PRN ×4 (10:41→20:50)
[2019-05-03] MEDS ORDERED: NA PHOS,M-B/NA PHOS,DI-BA 133 ML ENEMA RECTAL STA (11:45)
[2019-05-03] MEDS ORDERED: NA PHOS,M-B/NA PHOS,DI-BA 133 ML ENEMA RECTAL PRN (11:45)
[2019-05-03 11:59] LABS: Appearance,Urine Clear (Clear); Bilirubin,Urine Negative (Negative); Blood,Urine Negative (Negative); Color,Urine Light Yellow; Glucose,Urine (UA) Negative (Negative); Ketones,Urine Trace (Negative); Leukocyte Esterase,Urine Negative (Negative); Nitrite,Urine Negative (Negative); PH, Urine 6.5 (5.0-8.0); Protein,Urine Negative (Negative); Specific Gravity,Urine 1.012 (1.001-1.035); Urobilinogen,Urine <2.0 mg/dL (<2.0)
[2019-05-03] MEDS: ONDANSETRON 4 MG/2 ML VIAL IVP PRN ×2 (13:12→21:39)
[2019-05-03] MEDS ORDERED: NA PHOS,M-B/NA PHOS,DI-BA 133 ML ENEMA RECTAL ONE (15:10)
--- NOTE | 2019-05-03 16:02 | P.HPIM ---
History of Present Illness H&P Date: 05/03/19 Chief Complaint: Abdominal pain, nausea, vomiting This is a 28-year-old female with medical history of gastroesophageal reflux disease, endometriosis, constipation, bloody stools, anemia and multiple other medical issues presented to the ER with intractable nausea, vomiting and right upper quadrant radiating to mid epigastric, further radiating to left upper quadrant abdominal pain 2 weeks. Denies fever or chills. ER reports this is patient's third visit to the ER this week with same complaint. Last regular bowel movement 2 days ago. Denies bleeding, no melena, no hematochezia or hemoptysis. KUB reported no dilation of GI tract, nonspecific prominent bowel loops in the lower abdomen/pelvis, no free air. Normal nuclear medicine hepatobiliary scan 12/15/2018, reported. CT of pelvis 12/06/2018 reported no suspicious abnormality to account for right upper and right lower quadrant pain and vomiting. (ER also reports x-ray of the abdomen on April 28 reporting none acute intra-abdominal with no evidence of obstruction, chest x-ray normal, right upper quadrant ultrasound with no evidence of cholelithiasis 04/28/2019, computed tomography scan and 1016 reporting moderate fecal retention without evidence of obstruction-these reports currently not available). Vital signs stable, afebrile. Amylase 122, lipase 385. Patient also states he had been taking multiple stool softeners, mag citrate 2 and now having liquid brown stools. Recently on antibiotics for sinus infection. Pain controlled with [place] and Dilaudid. Maintained on IV fluid hydration, Pepcid. reports nausea with consumption of greater than 800 MLS of clear liquids. No emesis. UA repo rting trace ketones, negative leukocytes, specific gravity 1.012. Reports normal colonoscopy in 2018. Denies alcohol use, mushroom consumption. GI consulted. Review of Systems ROS Other: All systems not noted in ROS Statement are negative. ROS Statement: Those systems with pertinent positive or pertinent negative responses have been documented in the HPI. Past Medical History Past Medical History: GERD/Reflux Additional Past Medical History / Comment(s): endometriosis, constipation, blood in stool, anemia, History of Any Multi-Drug Resistant Organisms: None Reported Additional Past Surgical History / Comment(s): ovarian cyst removal Past Anesthesia/Blood Transfusion Reactions: No Reported Reaction Past Psychological History: No Psychological Hx Reported Smoking Status: Never smoker Past Alcohol Use History: Occasional Past Drug Use History: None Reported - Past Family History Mother Family Medical History: No Reported History Additional Family Medical History / Comment(s): blood clot "in her head" Medications and Allergies Home Medications Medication Instructions Recorded Confirmed Type Etonogestrel/Ethinyl Estradiol 1 ring VG Q21D 11/17/15 05/03/19 History [Nuvaring Vaginal Ring] Dicyclomine [Bentyl] 20 mg PO TID #30 tablet 05/01/19 05/03/19 Rx Metoclopramide [Reglan] 10 mg PO TID PRN #15 tab 05/01/19 05/03/19 Rx Ondansetron Odt [Zofran Odt] 4 mg PO Q8HR PRN #10 tab 05/01/19 05/03/19 Rx Nmrqhxb-Jgja-Zvlw [id number] 2 each PO Q6HR 05/03/19 05/03/19 History [Excedrin] Famotidine 40 mg PO DAILY 05/03/19 05/03/19 History Allergies Allergy/AdvReac Type Severity Reaction Status Date / Time No Known Allergies Allergy Verified 05/03/19 08:48 Physical Exam Vitals: Vital Signs Temp Pulse Pulse Resp BP BP Pulse Ox 05/03/19 12:05 98.7 F 82 16 118/70 97 05/03/19 09:08 97.9 F 76 18 117/76 100 05/03/19 08:00 98.2 F 90 16 140/82 99 05/03/19 06:03 108 H 20 123/90 99 05/03/19 03:14 97.9 F 105 H 18 132/84 99 Intake and Output 05/03/19 05/03/19 05/03/19 06:59 14:59 22:59 Intake Total 920 Balance 920 Intake: Oral 920 Other: Weight 62.686 kg PHYSICAL EXAM: VITAL SIGNS: As above GENERAL: Sitting up in bed, no acute distress HEENT: Conjunctivae normal. eyes normal. Oral mucosa moist NECK: No JVD. No thyroid enlargement. No LNs CARDIOVASCULAR: S1, S2 regular.No murmur RESPIRATION: Breath sounds diminished in the bases. No rhonchi or crackles. No bronchial breathing. ABDOMEN: Soft, bloated, distended, mid epigastric tenderness . No rebound, No guarding. no masses palpable. No ascites, No hepatosplenomegaly.Bowel sounds heard. LEGS: No edema. no swelling PSYCHIATRY: Alert and oriented X3, mood and affect normal. NERVOUS SYSTEM: Cranial N 2-12 grossly normal. Moves all 4 limbs. No focal deficits. Strength and sensation grossly intact.. Skin: no lesions, no rash Joints: No active swelling. No inflammation. Lymphatic system. No LN neck axilla or groin. Results CBC & Chem 7: 05/03/19 04:20 05/03/19 04:20 Labs: Abnormal Lab Results - Last 24 Hours (Table) 05/03/19 05/03/19 05/03/19 Range/Units 04:20 04:20 10:38 WBC 10.7 H (3.8-10.6) k/uL Neutrophils # 7.9 H (1.3-7.7) k/uL Amylase 122 H (30-110) U/L Lipase 385 H (23-300) U/L Urine Ketones Trace H (Negative) Thrombosis Risk Factor Assmnt - Choose All That Apply Any of the Below Risk Factors Present?: No Other Risk Factors: No Thrombosis Risk Factor Assessment Level: Very Low Risk Assessment and Plan Assessment: -Intractable nausea and vomiting with abdominal pain, workup in progress. 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 Further workup outpatient to be arranged by PCP. Plan: Continue on current medication regime ,monitoring and symptomatic treatment. Maintain IV fluid hydration,NPO. GI consulted with recommendations pending. Repeat fleets enema till clear. Patient recently on antibiotics outpatient, ruling out C. difficile colitis, specimen sent, results pending. Home medications have been reviewed and resumed accordingly. Repeat CBC, CMP, amylase, lipase in a.m. Further recommendations to follow. The impression and plan of care has been dictated as directed. : I performed a history and examination of this patient, discussed the same with the dictator. I agree with the dictator's note ,documented as a scribe. Any additional findings or plans will be noted.
[2019-05-03] MEDS: FAMOTIDINE 20 MG TAB PO SCH (18:35)
[2019-05-04] MEDS: SODIUM CHLORIDE 0.9% 1,000 ML IV SCH ×3 (02:04→20:42)
[2019-05-04] MEDS: HYDROmorphone 0.5 MG/0.5 ML SYRINGE IVP PRN ×6 (02:04→21:34)
[2019-05-04] MEDS: ACETAMINOPHEN TAB 500 MG TAB PO PRN ×3 (07:26→20:43)
[2019-05-04] MEDS: FAMOTIDINE 20 MG TAB PO SCH ×2 (07:28→20:43)
[2019-05-04] MEDS: ONDANSETRON 4 MG/2 ML VIAL IVP PRN ×2 (07:28→18:09)
[2019-05-04] MEDS ORDERED: MAGNESIUM CITRATE 296 ML BOTTLE PO ONE (08:00)
[2019-05-04] MEDS ORDERED: NA PHOS,M-B/NA PHOS,DI-BA 133 ML ENEMA RECTAL ONE ×2 (08:00→10:00)
[2019-05-04 08:48] LABS: ALT 21 U/L (9-52); AST 16 U/L (14-36); African American GFR (CKD) >90 (>60 ml/min/1.73 sqM); Albumin 3.4 g/dL (3.5-5.0); Alkaline Phosphatase 39 U/L (38-126); Amylase 63 U/L (30-110); Anion Gap 8 mmol/L; Blood Urea Nitrogen 2 mg/dL (7-17); Calcium 8.7 mg/dL (8.4-10.2); Carbon Dioxide 25 mmol/L (22-30); Chloride 110 mmol/L (98-107); Glucose 103 mg/dL (74-99); Non-African American GFR(CKD) >90 (>60 ml/min/1.73 sqM); Potassium 4.5 mmol/L (3.5-5.1); Sodium 143 mmol/L (137-145); Total Bilirubin 0.4 mg/dL (0.2-1.3); Total Protein 6.1 g/dL (6.3-8.2)
[2019-05-04 09:19] LABS: Basophils % (A) 0 %; Eosinophils # (A) 0.1 k/uL (0-0.7); Eosinophils % (A) 2 %; HCT 34.6 % (34.0-46.0); HGB 11.2 gm/dL (11.4-16.0); Lymphocytes # (A) 2.8 k/uL (1.0-4.8); Lymphocytes % (A) 55 %; MCH 31.1 pg (25.0-35.0); MCHC 32.5 g/dL (31.0-37.0); MCV 95.7 fL (80.0-100.0); Mean Platelet Volume 6.6; Monocytes # (A) 0.2 k/uL (0-1.0); Monocytes % (A) 4 %; Neutrophils # (A) 1.9 k/uL (1.3-7.7); Neutrophils % (A) 38 %; Platelet Count 286 k/uL (150-450); RBC 3.61 m/uL (3.80-5.40); RDW 12.7 % (11.5-15.5); WBC 5.1 k/uL (3.8-10.6)
--- NOTE | 2019-05-04 10:27 | P.CONS ---
History of Present Illness - Reason for Consult Consult date: 05/04/19 Abdominal pain, nausea and vomiting Requesting physician: Jonathon Vieyra - Chief Complaint Abdominal pain, nausea and vomiting - History of Present Illness 28-year-old female with medical history significant for gastroesophageal reflux disease, anemia, chronic constipation, endometriosis who presented to the hospital with nausea vomiting abdominal pain. The patient reports abdominal pain in the epigastric region of her abdomen radiating into the right upper quadrant and left upper quadrant she's been present for the past 2 weeks. She's had numerous visits to the emergency department with evaluation including K[facility] x- ray which was negative for any GI pathology, computed tomography scan of the abdomen and pelvis in 05/01 which showed moderate fecal retention without evidence of obstruction. Patient reports a long-standing history of chronic constipation for which she has had an extensive evaluation including EGD and colonoscopy 2 years ago. Recently she is followed up at [facility] with plans for a Sitz markers are test. However the patient did not follow-up she reports difficulty finding time in her schedule. She reports that previously she was having bowel movements every 2-3 days but that currently bowel movements have become even less frequent. She does use stool softeners at baseline and reports trying multiple medications in the past including Linzess with no improvement in her symptoms. The patient has also had significant nausea and vomiting in association with her symptoms. She reports multiple episodes of nonbloody, [id number] appearing material. Review of Systems REVIEW OF SYSTEMS: CONSTITUTIONAL: Denies any fevers, chills, weight change or fatigue. CARDIOVASCULAR: Denies any chest pain, palpitations high or low blood pressures RESPIRATORY: Denies any shortness of breath, hemoptysis or cough. GENITOURINARY: No dysuria or hematuria. MUSCULOSKELETAL: No weakness reported. SKIN: Denies any new rashes or lesions, jaundice or pallor. PSYCHIATRIC: Denies any alcohol abuse. NEUROLOGY: Denies headache, denies any new focal deficits. EARS/NOSE/THROAT: No recent hearing change, congestion, nasal discharge or sore throat. EYES: No pain in eyes, discharge or change in vision. GASTROINTESTINAL: As per HPI. Past Medical History Past Medical History: GERD/Reflux Additional Past Medical History / Comment(s): endometriosis, constipation, blood in stool, anemia, History of Any Multi-Drug Resistant Organisms: None Reported Additional Past Surgical History / Comment(s): ovarian cyst removal Past Anesthesia/Blood Transfusion Reactions: No Reported Reaction Past Psychological History: No Psychological Hx Reported Smoking Status: Never smoker Past Alcohol Use History: Occasional Past Drug Use History: None Reported - Past Family History Mother Family Medical History: No Reported History Additional Family Medical History / Comment(s): blood clot "in her head" Medications and Allergies Home Medications Medication Instructions Recorded Confirmed Type Etonogestrel/Ethinyl Estradiol 1 ring VG Q21D 11/17/15 05/03/19 History [Nuvaring Vaginal Ring] Dicyclomine [Bentyl] 20 mg PO TID #30 tablet 05/01/19 05/03/19 Rx Metoclopramide [Reglan] 10 mg PO TID PRN #15 tab 05/01/19 05/03/19 Rx Ondansetron Odt [Zofran Odt] 4 mg PO Q8HR PRN #10 tab 05/01/19 05/03/19 Rx Hizvzuw-Eyej-Hfwf [id number] 2 each PO Q6HR 05/03/19 05/03/19 History [Excedrin] Famotidine 40 mg PO DAILY 05/03/19 05/03/19 History Allergies Allergy/AdvReac Type Severity Reaction Status Date / Time No Known Allergies Allergy Verified 05/03/19 08:48 Physical Exam Vitals: Vital Signs Temp Pulse Resp BP Pulse Ox 05/04/19 09:00 98.1 F 89 18 119/82 97 05/04/19 08:00 89 18 05/04/19 00:20 98.4 F 80 18 108/64 98 05/03/19 20:49 98.5 F 79 18 122/78 98 05/03/19 12:05 98.7 F 82 16 118/70 97 Intake and Output 05/03/19 05/04/19 05/04/19 22:59 06:59 14:59 Other: # Voids 1 On physical examination, patient appears comfortable in no apparent distress. HEAD: Normocephalic, atraumatic. EYES: No scleral icterus. No conjunctival injection. MOUTH: No lesions, tongue midline. NECK: Trachea midline, no gross abnormalities. CHEST: Clear to auscultation with no wheezing or rhonchi appreciated. HEART: Regular rate and rhythm. ABDOMEN: Soft, obese. Bowel sounds are positive. No organomegaly. No guarding or rigidity. EXTREMITIES: No pedal edema. SKIN: No rashes, no jaundice. NEUROLOGIC: Alert and oriented x3. No focal deficits. Results CBC & Chem 7: 05/04/19 07:58 05/04/19 07:58 Labs: Abnormal Lab Results - Last 24 Hours (Table) 05/03/19 05/04/19 05/04/19 Range/Units 10:38 07:58 07:58 RBC 3.61 L (3.80-5.40) m/uL Hgb 11.2 L (11.4-16.0) gm/dL Chloride 110 H (98-107) mmol/L BUN 2 L (7-17) mg/dL Glucose 103 H (74-99) mg/dL Total Protein 6.1 L (6.3-8.2) g/dL Albumin 3.4 L (3.5-5.0) g/dL Urine Ketones Trace H (Negative) Abdominal x-ray: report reviewed (Negative KUB x-ray) Assessment and Plan (1) Chronic constipation Narrative/Plan: 28-year-old female with multiple medical comorbidities who presents to the hospital due to complaints of abdominal pain, nausea and vomiting and constipa tion. The patient has had multiple presentations to the emergency department with similar complaints. She reports evaluation at [facility] at which time a [place]itzmarks markers test was recommended however the patient has not followed up. She reports chronic constipation in the past with bowel movements every 2-3 days which has worsened recently. She had episodes of abdominal pain and nausea and vomiting and has had multiple evaluations with imaging including x-ray, ultrasound, computed tomography scan with findings of stool retention but no other acute pathologic problems. Unclear etiology of the patient's symptoms, with possibility of functional bowel disorder, dyssynergia defecation, motility dysfunction or other etiology. Current Visit: Yes Status: Acute Code(s): K59.09 - OTHER CONSTIPATION SNOMED Code(s): 433558208 (2) Abdominal pain Current Visit: Yes Status: Acute Code(s): R10.9 - UNSPECIFIED ABDOMINAL PAIN SNOMED Code(s): 18139411 (3) Nausea & vomiting Current Visit: No Status: Acute Code(s): R11.2 - NAUSEA WITH VOMITING, UNSPECIFIED SNOMED Code(s): 37814134 Plan: Supportive care Okay for liquids at this time Continue Zofran therapy Continue to monitor symptoms Patient was given fleets enema yesterday, will order magnesium citrate for this morning which the patient reports has provided good results in terms of bowel movements in the past, patient is still constipated can proceed with further fleets enemas Can consider small bowel follow-through if still symptomatic Patient encouraged to follow-up at [facility], patient needs a full evaluation to rule out dyssynergia defecation, or motility issue which includes anorectal manometry and defacography which is not available locally Thank you for allowing us to participate in the care of the patient we will continue to follow
--- NOTE | 2019-05-04 17:56 | P.PN ---
Subjective This is a 28-year-old female with medical history of gastroesophageal reflux disease, endometriosis, constipation, bloody stools, anemia and multiple other medical issues presented to the ER with intractable nausea, vomiting and right upper quadrant radiating to mid epigastric, further radiating to left upper quadrant abdominal pain 2 weeks. Denies fever or chills. ER reports this is patient's third visit to the ER this week with same complaint. Last regular bowel movement 2 days ago. Denies bleeding, no melena, no hematochezia or hemoptysis. KUB reported no dilation of GI tract, nonspecific prominent bowel loops in the lower abdomen/pelvis, no free air. Normal nuclear medicine hepatobiliary scan 12/15/2018, reported. CT of pelvis 12/06/2018 reported no suspicious abnormality to account for right upper and right lower quadrant pain and vomiting. (ER also reports x-ray of the abdomen on April 28 reporting none acute intra-abdominal with no evidence of obstruction, chest x-ray normal, right upper quadrant ultrasound with no evidence of cholelithiasis 04/28/2019, computed tomography scan and 1016 reporting moderate fecal retention without evidence of obstruction-these reports currently not available). Vital signs stable, afebrile. Amylase 122, lipase 385. Patient also states he had been taking multiple stool softeners, mag citrate 2 and now having liquid brown stools. Recently on antibiotics for sinus infection. Pain controlled with [place] and Dilaudid. Maintained on IV fluid hydration, Pepcid. reports nausea w ith consumption of greater than 800 MLS of clear liquids. No emesis. UA reporting trace ketones, negative leukocytes, specific gravity 1.012. Reports normal colonoscopy in 2018. Denies alcohol use, mushroom consumption. GI consulted. 05/04/2019:SHe continues to have abdominal pain and some nausea, no vomitting. C/O headaches, no chest pain pressures or SOB> GI consult pending Objective - Vital Signs Vital signs: Vital Signs Temp 98.1 F 05/04/19 09:00 Pulse 89 05/04/19 09:00 Resp 18 05/04/19 09:00 BP 119/82 05/04/19 09:00 Pulse Ox 97 05/04/19 09:00 Intake & Output 05/03/19 05/04/19 05/04/19 18:59 06:59 18:59 Intake Total 920 Output Total 350 Balance 570 Intake: Oral 920 Output: Stool 350 Other: # Voids 1 - Constitutional General appearance: Present: average body habitus - Neck Neck: Absent: lymphadenopathy, normal ROM, other, rigidity, stridor, thyromegaly - Respiratory Respiratory: bilateral: CTA - Cardiovascular Rhythm: regular Heart sounds: normal: S1, S2 Abnormal Heart Sounds: Absent: systolic murmur, diastolic murmur, rub, S3 Gallop, S4 Gallop, click, other - Gastrointestinal General gastrointestinal: Present: decreased bowel sounds Localized gastrointestinal: tender: diffuse - Labs CBC & Chem 7: 05/04/19 07:58 05/04/19 07:58 Labs: Abnormal Lab Results - Last 24 Hours (Table) 05/03/19 05/04/19 05/04/19 Range/Units 10:38 07:58 07:58 RBC 3.61 L (3.80-5.40) m/uL Hgb 11.2 L (11.4-16.0) gm/dL Chloride 110 H (98-107) mmol/L BUN 2 L (7-17) mg/dL Glucose 103 H (74-99) mg/dL Total Protein 6.1 L (6.3-8.2) g/dL Albumin 3.4 L (3.5-5.0) g/dL Urine Ketones Trace H (Negative) Assessment and Plan (1) Abnormal liver function tests Current Visit: Yes Status: Acute Code(s): R94.5 - ABNORMAL RESULTS OF LIVER FUNCTION STUDIES SNOMED Code(s): 547037897 (2) Abdominal pain Current Visit: Yes Status: Acute Code(s): R10.9 - UNSPECIFIED ABDOMINAL PAIN SNOMED Code(s): 33486585 (3) Chronic constipation Current Visit: Yes Status: Acute Code(s): K59.09 - OTHER CONSTIPATION SNOMED Code(s): 052874549 (4) Fecal impaction Current Visit: No Status: Acute Code(s): K56.41 - FECAL IMPACTION SNOMED Code(s): 25869299 (5) Nausea & vomiting Current Visit: No Status: Acute Code(s): R11.2 - NAUSEA WITH VOMITING, UNSPECIFIED SNOMED Code(s): 48909679 Plan: patient is s/p fleets x2 yesterday with some return. shGI consukt pending, labs have returmned to bseline. continue current diet, repeat l; reevaluate in the next 24 hrs
--- NOTE | 2019-05-04 17:59 | FL ---
EXAMINATION TYPE: FL small bowel follow through DATE OF EXAM: 05/04/2019 CLINICAL HISTORY: Abdominal pain TECHNIQUE: A single contrast small bowel follow through is performed utilizing barium. COMPARISON: None FINDINGS: The ship runner film shows a nonacute abdomen. Fecal pattern is fairly normal. There are no patho logic calcifications over the kidneys. Serial film exam of the abdomen up to 2 hours shows normal transit of barium through the entire small bowel and into the right colon. Small bowel pattern is normal. I see no intestinal mucosal thickenin g. There is no sign of a bowel obstruction. There is no dilated bowel. Mucosal small bowel pattern is normal. The terminal ileum appears normal. The large bowel gas pattern appears normal. IMPRESSION: Normal small bowel follow-through exam.
[2019-05-04] MEDS: TRIMETHOBENZAMIDE 300 MG CAP PO PRN (22:29)
[2019-05-05] MEDS: HYDROmorphone 0.5 MG/0.5 ML SYRINGE IVP PRN ×2 (00:40→11:23)
[2019-05-05] MEDS: ONDANSETRON 4 MG/2 ML VIAL IVP PRN ×2 (01:10→11:08)
[2019-05-05] MEDS: SODIUM CHLORIDE 0.9% 1,000 ML IV SCH ×2 (06:36→16:28)
[2019-05-05] MEDS: FAMOTIDINE 20 MG TAB PO SCH ×2 (11:04→20:55)
[2019-05-05] MEDS ORDERED: NA PHOS,M-B/NA PHOS,DI-BA 133 ML ENEMA RECTAL ONE ×2 (12:30→15:42)
--- NOTE | 2019-05-05 13:00 | P.PN ---
Subjective This is a 28-year-old female with medical history of gastroesophageal reflux disease, endometriosis, constipation, bloody stools, anemia and multiple other medical issues presented to the ER with intractable nausea, vomiting and right upper quadrant radiating to mid epigastric, further radiating to left upper quadrant abdominal pain 2 weeks. Denies fever or chills. ER reports this is patient's third visit to the ER this week with same complaint. Last regular bowel movement 2 days ago. Denies bleeding, no melena, no hematochezia or hemoptysis. KUB reported no dilation of GI tract, nonspecific prominent bowel loops in the lower abdomen/pelvis, no free air. Normal nuclear medicine hepatobiliary scan 12/15/2018, reported. CT of pelvis 12/06/2018 reported no suspicious abnormality to account for right upper and right lower quadrant pain and vomiting. (ER also reports x-ray of the abdomen on April 28 reporting none acute intra-abdominal with no evidence of obstruction, chest x-ray normal, right upper quadrant ultrasound with no evidence of cholelithiasis 04/28/2019, computed tomography scan and 1016 reporting moderate fecal retention without evidence of obstruction-these reports currently not available). Vital signs stable, afebrile. Amylase 122, lipase 385. Patient also states he had been taking multiple stool softeners, mag citrate 2 and now having liquid brown stools. Recently on antibiotics for sinus infection. Pain controlled with [place] and Dilaudid. Maintained on IV fluid hydration, Pepcid. reports nausea w ith consumption of greater than 800 MLS of clear liquids. No emesis. UA reporting trace ketones, negative leukocytes, specific gravity 1.012. Reports normal colonoscopy in 2018. Denies alcohol use, mushroom consumption. GI consulted. 05/04/2019:SHe continues to have abdominal pain and some nausea, no vomitting. C/O headaches, no chest pain pressures or SOB> GI consult pending 05/05/2019: Patient feels slightly improved. GI seen her and recommended supportive care, and given her mag citrate and recommended that we continue fleets enemas if needed. Serology recommended follow-up for defecation motility studies including anorectal manometry and Defacography at [facility]. She continues to complain of mild headache, which is chronic, she has no chest pains or shortness breath. She does continue to have mostly right upper quadrant abdominal pain and tenderness this time. GI had ordered Bentyl for this morning. Objective - Vital Signs Vital signs: Vital Signs Temp 98.9 F 05/05/19 12:20 Pulse 77 05/05/19 12:20 Resp 16 05/05/19 12:20 BP 118/74 05/05/19 12:20 Pulse Ox 97 05/05/19 12:20 Intake & Output 05/04/19 05/05/19 05/05/19 18:59 06:59 18:59 Intake Total 300 Output Total 502 200 Balance -202 -200 Intake: Oral 300 Output: Stool 502 200 Other: # Voids 1 1 # Bowel Movements 1 - Exam General: The patient is awake and alert, in no distress, and does not appear acutely ill. Neck: The neck is supple, there is no thyromegaly, lymphadenopathy, tenderness or JVD. Cardiovascular: S1S2 is normal, There is a regular rate and rhythm. No murmur, rub or gallop is appreciated. Respiratory: Lungs are clear to auscultation bilaterally, respirations are non-labored, breath sounds are equal. Gastrointestinal: Soft, non-distended, mild to moderate right upper quadrant abdomen without masses or organomegaly noted. There is no rebound or guarding present. Bowel sounds are unremarkable. Musculoskeletal: Normal ROM, no tenderness, There is no pedal edema. There is no calf tenderness or swelling. No cords were appreciated. Neurological: CN II-XII intact, there are no obvious motor or sensory deficits. Coordination appears grossly intact. Speech is normal. Skin: Skin is warm and dry and no rashes or lesions are noted. - Labs CBC & Chem 7: 05/04/19 07:58 05/04/19 07:58 Assessment and Plan (1) Abdominal pain Current Visit: Yes Status: Acute Code(s): R10.9 - UNSPECIFIED ABDOMINAL PAIN SNOMED Code(s): 57770274 (2) Abnormal liver function tests Current Visit: Yes Status: Acute Code(s): R94.5 - ABNORMAL RESULTS OF LIVER FUNCTION STUDIES SNOMED Code(s): 868369185 (3) Chronic constipation Current Visit: Yes Status: Acute Code(s): K59.09 - OTHER CONSTIPATION SN ED Code(s): 219115633 (4) Fecal impaction Current Visit: No Status: Acute Code(s): K56.41 - FECAL IMPACTION SNOMED Code(s): 42787605 (5) Nausea & vomiting Current Visit: No Status: Acute Code(s): R11.2 - NAUSEA WITH VOMITING, UNSPECIFIED SNOMED Code(s): 90598362 (6) Headache Current Visit: Yes Status: Acute Code(s): R51 - HEADACHE SNOMED Code(s): 67960789 Plan: Fleets enemas 2 today. We'll wait to see if the Bentyl helps, she'll continue Zofran, discontinued Dilaudid and replace with Toradol this time. Plan I'm getting her pain improved enough for her to be discharged home with outpatient follow-up at [facility]. Possible discharge either today or tomorrow
[2019-05-05] MEDS: DICYCLOMINE 20 MG TAB PO SCH ×3 (13:17→23:03)
[2019-05-05] MEDS: KETOROLAC 30 MG/ML 1 ML VIAL IVP PRN ×2 (15:29→23:02)
[2019-05-05] MEDS: TRIMETHOBENZAMIDE 300 MG CAP PO PRN (16:27)
[2019-05-05] MEDS ORDERED: MAGNESIUM CITRATE 296 ML BOTTLE PO ONE (17:00)
[2019-05-05] MEDS ORDERED: traMADol 50 MG TAB PO PRN (20:15)
--- NOTE | 2019-05-05 21:58 | P.PN ---
Subjective Progress Note Date: 05/05/19 Principal diagnosis: Abdominal pain, chronic constipation, nausea and vomiting Patient reporting still having episodes of abdominal pain as well as nausea. Objective - Vital Signs Vital signs: Vital Signs Temp 98.1 F 05/05/19 16:20 Pulse 76 05/05/19 16:20 Resp 18 05/05/19 16:20 BP 118/85 05/05/19 16:20 Pulse Ox 98 05/05/19 16:20 Intake & Output 05/04/19 05/05/19 05/05/19 18:59 06:59 18:59 Intake Total 300 Output Total 502 200 Balance -202 -200 Intake: Oral 300 Output: Stool 502 200 Other: # Voids 1 1 # Bowel Movements 1 - Exam On physical examination, patient appears comfortable in no apparent distress. HEAD: Normocephalic, atraumatic. EYES: No scleral icterus. No conjunctival injection. MOUTH: No lesions, tongue midline. NECK: Trachea midline, no gross abnormalities. CHEST: Clear to auscultation with no wheezing or rhonchi appreciated. HEART: Regular rate and rhythm. ABDOMEN: Soft, obese. Bowel sounds are positive. No organomegaly. No guarding or rigidity. EXTREMITIES: No pedal edema. SKIN: No rashes, no jaundice. NEUROLOGIC: Alert and oriented x3. No focal deficits. - Labs CBC & Chem 7: 05/04/19 07:58 05/04/19 07:58 Assessment and Plan (1) Chronic constipation Narrative/Plan: 28-year-old female with multiple medical comorbidities who presents to the hospital due to complaints of abdominal pain, nausea and vomiting and constipation. The patient has had multiple presentations to the emergency department with similar complaints. She reports evaluation at [facility] at which time a Sitzmarks markers test was recommended however the patient has not followed up. She reports chronic constipation in the past with bowel movements every 2-3 days which has worsened recently. She had episodes of abdominal pain and nausea and vomiting and has had multiple evaluations with imaging including x-ray, ultrasound, computed tomography scan with findings of stool retention but no other acute pathologic problems. Unclear etiology of the patient's symptoms, with possibility of functional bowel disorder, dyssynergia defecation, motility dysfunction or other etiology. Current Visit: Yes Status: Acute Code(s): K59.09 - OTHER CONSTIPATION SNOMED Code(s): 731290225 (2) Abdominal pain Current Visit: Yes Status: Acute Code(s): R10.9 - UNSPECIFIED ABDOMINAL PAIN SNOMED Code(s): 30894624 (3) Nausea & vomiting Current Visit: No Status: Acute Code(s): R11.2 - NAUSEA WITH VOMITING, UNSPECIFIED SNOMED Code(s): 29144963 Plan: Supportive care Okay for diet as tolerated Continue Zofran therapy Continue to monitor symptoms Dicyclomine had it for abdominal pain today Small bowel follow-through performed with no findings suggesting obstruction, mass, ileal thickening or other pathology Patient encouraged to follow-up at [facility], patient needs a full evaluation to rule out dyssynergia defecation, or motility issue which includes anorectal manometry and defacography which is not available locally Okay for discharge from gastroenterology standpoint for outpatient follow-up as dictated Thank you for allowing us to participate in the care of the patient we will continue to follow
[2019-05-06] MEDS: DICYCLOMINE 20 MG TAB PO SCH (07:18)
[2019-05-06] MEDS: SODIUM CHLORIDE 0.9% 1,000 ML IV SCH (07:18)
[2019-05-06] MEDS: FAMOTIDINE 20 MG TAB PO SCH (07:18)
[2019-05-06] MEDS: KETOROLAC 30 MG/ML 1 ML VIAL IVP PRN (07:21)
[2019-05-06 10:15] VITALS: BP 115/70; PULSE 85; RESP 16; TEMP 98.7
--- NOTE | 2019-05-09 09:42 | P.DS ---
Providers Date of admission: 05/03/19 06:57 Expected date of discharge: 05/06/19 Attending physician: Jonathon Vieyra Consults: 05/03/19 06:59 Consult Physician Routine Consulting Provider: Alexa Ramirez Consult Reason/Comments: abdominal pain Do you want consulting provider notified?: Yes Primary care physician: Stated None Hospital Course: Final Diagnoses: (1) Abnormal liver function tests Current Visit: Yes Status: Acute Code(s): R94.5 - ABNORMAL RESULTS OF LIVER FUNCTION STUDIES SNOMED Code(s): 151393909 (2) Abdominal pain Current Visit: Yes Status: Acute Code(s): R10.9 - UNSPECIFIED ABDOMINAL PAIN SNOMED Code(s): 25990235 (3) Chronic constipation Current Visit: Yes Status: Acute Code(s): K59.09 - OTHER CONSTIPATION SNOMED Code(s): 353491581 (4) Fecal impaction Current Visit: No Status: Acute Code(s): K56.41 - FECAL IMPACTION SNOMED Code(s): 07687156 (5) Nausea & vomiting Current Visit: No Status: Acute Code(s): R11.2 - NAUSEA WITH VOMITING, UNSPECIFIED SNOMED Code(s): 50926392 Hospital course This is a 28-year-old female with medical history of gastroesophageal reflux disease, endometriosis, constipation, bloody stools, anemia and multiple other medical issues presented to the ER with intractable nausea, vomiting and right upper quadrant radiating to mid epigastric, further radiating to left upper quadrant abdominal pain 2 weeks. Denies fever or chills. ER reports this is patient's third visit to the ER this week with same complaint. Last regular bowel movement 2 days ago. Denies bleeding, no melena, no hematochezia or hemoptysis. KUB reported no dilation of GI tract, nonspecific prominent bowel loops in the lower abdomen/pelvis, no free air. Normal nuclear medicine hepatobiliary scan 12/15/2018, reported. CT of pelvis 12/06/2018 reported no suspicious abnormality to account for right upper and right lower quadrant pain and vomiting. (ER also reports x-ray of the abdomen on April 28 reporting none acute intra-abdominal with no evidence of obstruction, chest x- ray normal, right upper quadrant ultrasound with no evidence of cholelithiasis 04/28/2019, computed tomography scan and 1016 reporting moderate fecal retention without evidence of obstruction-these reports currently not available). Vital signs stable, afebrile. Amylase 122, lipase 385. Patient also states he had been taking multiple stool softeners, mag citrate 2 and now having liquid brown stools. Recently on antibiotics for sinus infection. Pain controlled with Soso and Dilaudid. Maintained on IV fluid hydration, Pepcid. reports nausea with consumption of greater than 800 MLS of clear liquids. No emesis. UA reporting trace ketones, negative leukocytes, specific gravity 1.012. Reports normal colonoscopy in 2018. Denies alcohol use, mushroom consumption. GI consulted. 05/04/2019:SHe continues to have abdominal pain and some nausea, no vomitting. C/O headaches, no chest pain pressures or SOB> GI consult pending 05/05/2019: Patient feels slightly improved. GI seen her and recommended supportive care, and given her mag citrate and recommended that we continue fleets enemas if needed. Serolgy recommended follow-up for defecation motility studies including anorectal manometry and Defacography at [facility]. She continues to complain of mild headache, which is chronic, she has no chest pains or shortness breath. She does continue to have mostly right upper quadrant abdominal pain and tenderness this time. GI had ordered Bentyl for this morning. Status post fleets with return. Status post reported negative small bowel follow-through. Evaluated by GI. Chronic constipation, recommending follow-up outpatient with [facility] specialist regarding for evaluation to rule out Dyssynergia defecation /motility issues via manometry, defacography. Significant clinical improvement. Cleared by GI for discharge. Patient is being discharged home in a stable condition with guarded prognosis. - Exam General: Alert and oriented 3, no acute distress. Cardiovascular: S1S2 is normal, There is a regular rate and rhythm. No murmur, rub or gallop is appreciated. Respiratory: Lungs are clear to auscultation bilaterally, respirations are non-labored, breath sounds are equal. Gastrointestinal: Soft, non-distended, minimal diffuse tenderness,without masses or organomegaly noted. There is no rebound or guarding present. Bowel sounds are unremarkable. Musculoskeletal: Normal ROM, no tenderness, There is no pedal edema. There is no calf tenderness or swelling. No cords were appreciated. Neurological: CN II-XII intact, there are no obvious motor or sensory deficits. Coordination appears grossly intact. Speech is normal. Skin: Skin is warm and dry and no rashes or lesions are noted. The impression and plan of care has been dictated as directed. : I performed a history and examination of this patient, discussed the same with the dictator. I agree with the dictator's note ,documented as a scribe. Any additional findings or plans will be noted. Patient Condition at Discharge: Stable Plan - Discharge Summary Discharge Rx Participant: No New Discharge Prescriptions: New Ketorolac [Toradol] 10 mg PO Q6HR PRN #16 tab PRN Reason: Pain Continue Etonogestrel/Ethinyl Estradiol [Nuvaring Vaginal Ring] 1 ring VG Q21D Ondansetron Odt [Zofran ODT] 4 mg PO Q8HR PRN #10 tab PRN Reason: Nausea Jrxyiou-Qcry-Doqt [phone] [Excedrin] 2 each PO Q6HR Changed Dicyclomine [Bentyl] 20 mg PO Q6H #30 tablet Famotidine 20 mg PO Q12H #0 Discontinued Metoclopramide [Reglan] 10 mg PO TID PRN #15 tab PRN Reason: GERD Discharge Medication List Etonogestrel/Ethinyl Estradiol [Nuvaring Vaginal Ring] 1 ring VG Q21D 11/17/15 [History] Ondansetron Odt [Zofran ODT] 4 mg PO Q8HR PRN #10 tab 05/01/19 [Rx] Ojumuif-Kmzw-Nasv [phone] [Excedrin] 2 each PO Q6HR 05/03/19 [History] Dicyclomine [Bentyl] 20 mg PO Q6H #30 tablet 05/06/19 [Rx] Famotidine 20 mg PO Q12H #0 05/06/19 [Rx] Ketorolac [Toradol] 10 mg PO Q6HR PRN #16 tab 05/06/19 [Rx] Follow up Appointment(s)/Referral(s): Dr. Mena [facility] [Other] - 1 Week (FOLLOW UP FOR COLONOSCOPY SCEDULED) Jonathon Vieyra MD [STAFF PHYSICIAN] - 1 Week (05-14-19 @1:30PM) Harvey Berkowitz MD [STAFF PHYSICIAN] - As Needed Patient Instructions/Handouts: Abdominal Pain (ED) Activity/Diet/Wound Care/Special Instructions: CALL DR OR RETURN TO ER FOR WORSENING PROBLEMS OR CONCERNS. Discharge Disposition: HOME SELF-CARE
== END 2019-05-06 10:55 | disposition home or self-care (01) ==
LOC: EC 03:05 → 6PED 06:57
PROVIDERS: ADMIT Family Medicine; ATTEND Family Medicine
DX: K56.41 Fecal impaction (principal); R10.11 Right upper quadrant pain; R10.12 Left upper quadrant pain; R10.13 Epigastric pain; R94.5 Abnormal results of liver function studies; K21.9 Gastro-esophageal reflux disease without esophagitis; N80.9 Endometriosis, unspecified; D64.9 Anemia, unspecified; G89.29 Other chronic pain; R90.89 Other abnormal findings on diagnostic imaging of central nervous system; R11.2 Nausea with vomiting, unspecified; R51 Headache; Z79.899 Other long term (current) drug therapy; Z87.19 Personal history of other diseases of the digestive system; Z87.09 Personal history of other diseases of the respiratory system; Z82.49 Family history of ischemic heart disease and other diseases of the circulatory system
CPT/HCPCS: 96361 ×5; 96375 ×2; 96376 ×4; 96365; 99285; 36415; 80053 ×2; 82150 ×2; 83690 ×2; 85025 ×2; 81003; 81025; 87324; 74250; 74018; G0378 ×4; J0500; J2550; J2405 ×3; J1885 ×2; J1170 ×4

== ENCOUNTER 2020-03-16 12:30 | Observation (INO) | payer BC ==
[2020-03-16] MEDS ORDERED: SODIUM CHLORIDE 0.9% 500 ML 500 ML IV ONE (12:48)
[2020-03-16] MEDS ORDERED: SODIUM CHLORIDE 0.9% 1,000 ML IV ONE ×2 (12:48→18:57)
--- NOTE | 2020-03-16 12:57 | ED ---
Female Urogenital HPI - General Chief complaint: Vaginal Bleeding Stated complaint: Possible miscarriage Time Seen by Provider: 03/16/20 12:40 Source: patient, RN notes reviewed Mode of arrival: ambulatory Limitations: no limitations - History of Present Illness Initial comments: This a 21-year-old female presents emergency Department chief complaint of vaginal bleeding and . Patient is A1 states that she is currently around a weeks . Patient has been seen her CHAINMAN Dr. Mike who has ordered 2 ultrasounds but has not vomited definite IUP. Patient was told they're concerned about possible ectopic as her hCG continues to climb. Patient states she started having nausea vomiting today and right lower quadrant pain which is new for her. Patient denies any dysuria, diarrhea constipation. Patient states she's had some chills no known fever. Denies any chest pain or shortness of breath. Last Menstrual Period: 01/19/20 - Related Data Home Medications Medication Instructions Recorded Confirmed Etonogestrel/Ethinyl Estradiol 1 ring VG Q21D 11/17/15 05/03/19 [Nuvaring Vaginal Ring] Evkfvbu-Qjid-Qana [phone] 2 each PO Q6HR 05/03/19 05/03/19 [Excedrin] Previous Rx's Medication Instructions Recorded Ondansetron Odt [Zofran ODT] 4 mg PO Q8HR PRN #10 tab 05/01/19 Dicyclomine [Bentyl] 20 mg PO Q6H #30 tablet 05/06/19 Famotidine 20 mg PO Q12H #0 05/06/19 Ketorolac [Toradol] 10 mg PO Q6HR PRN #16 tab 05/06/19 Allergies Allergy/AdvReac Type Severity Reaction Status Date / Time No Known Allergies Allergy Verified 03/16/20 12:40 Review of Systems ROS Statement: Those systems with pertinent positive or pertinent negative responses have been documented in the HPI. ROS Other: All systems not noted in ROS Statement are negative. Past Medical History Past Medical History: GERD/Reflux Additional Past Medical History / Comment(s): endometriosis, constipation, blood in stool, anemia, History of Any Multi-Drug Resistant Organisms: None Reported Additional Past Surgical History / Comment(s): ovarian cyst removal Past Anesthesia/Blood Transfusion Reactions: No Reported Reaction Past Psychological History: No Psychological Hx Reported Past Alcohol Use History: Occasional Past Drug Use History: None Reported - Past Family History Mother Family Medical History: No Reported History Additional Family Medical History / Comment(s): blood clot "in her head" General Exam Limitations: no limitations General appearance: alert, in no apparent distress Head exam: Present: atraumatic, normocephalic, normal inspection Eye exam: Present: normal appearance, PERRL, EOMI. Absent: scleral icterus, conjunctival injection, periorbital swelling ENT exam: Present: normal exam, normal oropharynx, mucous membranes moist Neck exam: Present: normal inspection, full ROM. Absent: tenderness, meningismus, lymphadenopathy Respiratory exam: Present: normal lung sounds bilaterally. Absent: respiratory distress, wheezes, rales, rhonchi, stridor Cardiovascular Exam: Present: regular rate, normal rhythm, normal heart sounds. Absent: systolic murmur, diastolic murmur, rubs, gallop, clicks GI/Abdominal exam: Present: soft, tenderness (Mild right lower quadrant), normal bowel sounds. Absent: distended, guarding, rebound, rigid Back exam: Absent: CVA tenderness (R), CVA tenderness (L) Neurological exam: Present: alert Skin exam: Present: warm, dry, intact, normal color. Absent: rash Course Vital Signs 03/16/20 03/16/20 12:34 14:41 Temperature 98.4 F Pulse Rate 108 H 96 Respiratory 18 18 Rate Blood Pressure 138/77 108/79 O2 Sat by Pulse 100 100 Oximetry Medical Decision Making - Medical Decision Making Patient presented for abdominal discomfort vaginal bleeding and patient's case discussed with her CHAINMAN who will take patient to though on for possible molar - Lab Data Result diagrams: 03/16/20 13:02 03/16/20 13:02 Lab Results 03/16/20 03/16/20 03/16/20 Range/Units 13:02 13:02 13:02 WBC 8.7 (3.8-10.6) k/uL RBC 4.27 (3.80-5.40) m/uL Hgb 12.6 (11.4-16.0) gm/dL Hct 38.8 (34.0-46.0) % MCV 90.7 (80.0-100.0) fL MCH 29.4 (25.0-35.0) pg MCHC 32.4 (31.0-37.0) g/dL RDW 13.1 (11.5-15.5) % Plt Count 272 (150-450) k/uL Neutrophils % 77 % Lymphocytes % 18 % Monocytes % 4 % Eosinophils % 0 % Basophils % 0 % Neutrophils # 6.7 (1.3-7.7) k/uL Lymphocytes # 1.5 (1.0-4.8) k/uL Monocytes # 0.3 (0-1.0) k/uL Eosinophils # 0.0 (0-0.7) k/uL Basophils # 0.0 (0-0.2) k/uL Sodium 136 L (137-145) mmol/L Potassium 3.9 (3.5-5.1) mmol/L Chloride 104 (98-107) mmol/L Carbon Dioxide 22 (22-30) mmol/L Anion Gap 10 mmol/L BUN 10 (7-17) mg/dL Creatinine 0.49 L (0.52-1.04) mg/dL Est GFR (CKD-EPI)AfAm >90 (>60 ml/min/1.73 sqM) Est GFR (CKD-EPI)NonAf >90 (>60 ml/min/1.73 sqM) Glucose 90 (74-99) mg/dL Calcium 9.5 (8.4-10.2) mg/dL HCG, Quant 63685.4 mIU/mL Urine Color Light Yellow Urine Appearance Clear (Clear) Urine pH 7.0 (5.0-8.0) Ur Specific Hellier 1.006 (1.001-1.035) Urine Protein Negative (Negative) Urine Glucose (UA) Negative (Negative) Urine Ketones Negative (Negative) Urine Blood Small H (Negative) Urine Nitrite Negative (Negative) Urine Bilirubin Negative (Negative) Urine Urobilinogen <2.0 (<2.0) mg/dL Ur Leukocyte Esterase Negative (Negative) Urine RBC <1 (0-5) /hpf Urine WBC 1 (0-5) /hpf Ur Squamous Epith Cells <1 (0-4) /hpf Disposition Clinical Impression: Molar Disposition: ADMITTED IP TO THIS [facility] Referrals: Dora Maier MD [Primary Care Provider] - 1-2 days
[2020-03-16 13:19] LABS: Basophils % (A) 0 %; Eosinophils % (A) 0 %; HCT 38.8 % (34.0-46.0); HGB 12.6 gm/dL (11.4-16.0); Lymphocytes # (A) 1.5 k/uL (1.0-4.8); Lymphocytes % (A) 18 %; MCH 29.4 pg (25.0-35.0); MCHC 32.4 g/dL (31.0-37.0); MCV 90.7 fL (80.0-100.0); Mean Platelet Volume 8.1; Monocytes # (A) 0.3 k/uL (0-1.0); Monocytes % (A) 4 %; Neutrophils # (A) 6.7 k/uL (1.3-7.7); Neutrophils % (A) 77 %; Platelet Count 272 k/uL (150-450); RBC 4.27 m/uL (3.80-5.40); RDW 13.1 % (11.5-15.5); WBC 8.7 k/uL (3.8-10.6)
[2020-03-16 13:28] LABS: African American GFR (CKD) >90 (>60 ml/min/1.73 sqM); Anion Gap 10 mmol/L; Blood Urea Nitrogen 10 mg/dL (7-17); Calcium 9.5 mg/dL (8.4-10.2); Carbon Dioxide 22 mmol/L (22-30); Chloride 104 mmol/L (98-107); Glucose 90 mg/dL (74-99); Non-African American GFR(CKD) >90 (>60 ml/min/1.73 sqM); Potassium 3.9 mmol/L (3.5-5.1); Sodium 136 mmol/L (137-145)
[2020-03-16 13:32] LABS: Appearance,Urine Clear (Clear); Bilirubin,Urine Negative (Negative); Blood,Urine Small (Negative); Color,Urine Light Yellow; Glucose,Urine (UA) Negative (Negative); Ketones,Urine Negative (Negative); Leukocyte Esterase,Urine Negative (Negative); Nitrite,Urine Negative (Negative); Protein,Urine Negative (Negative); RBC,Urine <1 /hpf (0-5); Specific Gravity,Urine 1.006 (1.001-1.035); Squamous Epithelial Cell,Urine <1 /hpf (0-4); Urobilinogen,Urine <2.0 mg/dL (<2.0); WBC,Urine 1 /hpf (0-5)
[2020-03-16 14:14] LABS: HCG,Quantitative Serum 47670.4 mIU/mL
--- NOTE | 2020-03-16 14:23 | US ---
EXAMINATION TYPE: Transabdominal DATE OF EXAM: 03/16/2020 1:57 PM COMPARISON: NONE CLINICAL HISTORY: pain. Patient states 2 ultrasounds done in office. c/o bleeding/cramping for entire . EXAM PERFORMED: Transvaginal (TV) and Transabdominal (TA) EXAM MEASUREMENTS: GESTATIONAL AGE / DATING Physician Established: ( weeks/ days) EDC: Dates by LMP: (8 weeks/1 days) EDC: 10/25/2020 Dates by First Scan: No previous Dates by Current Scan for: No IUP seen MATERNAL ANATOMY Uterus: Empty Anechoic area within uterus. No definite IUP seen. Thickened endometrial canal with het erogeneous texture (? blood) Right Ovary: with cyst = 1.7 x 1.2 x 1.0 cm, area on right ovary with cystic area =2.2 x 1.8 cm Fr ee fluid with internal echos in cds and off around right ovary. ? Ectopic Left Ovary: wnl Post CDS / Adnexa: with fluid Presence of free fluid: yes Presence of corpus luteal cyst: Presence of subchorionic bleed: GESTATION / SURVEY CRL: Not seen MSD: 0.8 cm??? ( weeks/ days) Yolk Sac (normal less than 6mm): Heart Rate: Not seen Rhythm: IUP: No IUP seen at this time Nuchal Translucency 10-14wks (normal less than 3mm): Date of LMP: 01/19/2020 Beta HcG (if available): IMPRESSION: 1. There is a hypoechoic collection as well as some free fluid within the pelvis. Ectopic c annot be excluded. Correlate with the beta hCG. 2. No intrauterine gestation identified. There is some thickening and some fluid within the endometri al canal
[2020-03-16] MEDS ORDERED: NALOXONE 0.4 MG/ML 1 ML VIAL IV PRN (14:53)
[2020-03-16] MEDS ORDERED: ONDANSETRON 4 MG/2 ML VIAL IVP STA (14:57)
--- NOTE | 2020-03-16 16:53 | P.HPOB ---
History of Present Illness H&P Date: 03/16/20 Chief Complaint: Spontaneous versus ectopic Patient is a 29-year-old 2 para 1001 admitted through the ER with complaints of increasing nausea and vomiting as well as daily bleeding for the last 2 weeks which has increased somewhat in the last day or 2. She had been followed in the office with beta hCGs that were elevated high enough to have demonstrated a crown-rump length and heart rate but one has never been seen. Her most recent ultrasound performed in the office on March 03 demonstrated an intrauterine gestational sac with yolk sac apparent but no crown-rump length or heart rate present. She also had a 1.5 cm in largest dimension ovarian cyst and a small amount of free fluid present. As reported above, she reports having daily spotting over the last 2 weeks with increasing symptoms today prompting her visit to the emergency room. Ultrasound through the emergency room demonstrates no intrauterine or extrauterine . There is some free fluid in the pelvis in a small amount of fluid within the endometrial cavity. The patient is otherwise currently asymptomatic and without pain. Obstetrical history: 2 para 1001 with 1 term vaginal delivery without complications. Current statistics are listed in history of present illness. Gynecologic history: Unremarkable with no history of any infections to include STDs. Review of Systems Review of systems is confined to history of present illness. Past Medical History Past Medical History: GERD/Reflux Additional Past Medical History / Comment(s): endometriosis, constipation, blood in stool, anemia, History of Any Multi-Drug Resistant Organisms: None Reported Additional Past Surgical History / Comment(s): ovarian cyst removal Past Anesthesia/Blood Transfusion Reactions: No Reported Reaction Past Psychological History: No Psychological Hx Reported Smoking Status: Never smoker Past Alcohol Use History: Occasional Past Drug Use History: None Reported - Past Family History Mother Family Medical History: No Reported History Additional Family Medical History / Comment(s): blood clot "in her head" Medications and Allergies Home Medications Medication Instructions Recorded Confirmed Type No Known Home Medications 03/16/20 03/16/20 History Allergies Allergy/AdvReac Type Severity Reaction Status Date / Time No Known Allergies Allergy Verified 03/16/20 15:43 Exam Vital Signs Temp Pulse Resp BP Pulse Ox 03/16/20 15:44 89 16 119/76 99 03/16/20 14:41 96 18 108/79 100 03/16/20 12:34 98.4 F 108 H 18 138/77 100 Intake and Output 03/16/20 03/16/20 03/16/20 06:59 14:59 22:59 Other: Weight 70.307 kg 70.307 kg In general, this is a well-developed, well-nourished white female in no acute distress. Her heart has a regular rhythm and rate without murmur. Her lungs are clear to auscultation bilaterally in all gee. Her abdomen is nondistended, has normal active bowel sounds, soft, nontender, and without any palpable masses, penicillin, or hernias. Her extremities are without any cyanosis, clubbing, or edema and are nontender to palpation bilaterally. Pelvic examination is deferred to the operating room. Results Result Diagrams: 03/16/20 13:02 03/16/20 13:02 Abnormal Lab Results - Last 24 Hours (Table) 03/16/20 03/16/20 Range/Units 13:02 13:02 Sodium 136 L (137-145) mmol/L Creatinine 0.49 L (0.52-1.04) mg/dL Urine Blood Small H (Negative) Assessment and Plan (1) Spontaneous Current Visit: Yes Status: Acute Code(s): O03.9 - COMPLETE OR UNSP SPONTANE OUS WITHOUT COMPLICATION SNOMED Code(s): 16853765 Plan: The diagnosis at this point is unclear. We cannot entirely rule out an ectopic though it seems highly unlikely with an hCG of over 47,000. This is especially so with a history of ultrasound in our office demonstrating what appeared to be an intrauterine gestational sac with yolk sac less than 2 weeks ago. My concern is for the possibility of a molar and, as such, I have recommended that we proceed to the operating room for D&C as there is little doubt that this is a failing of one sort or another. The D&C will allow us to obtain a tissue sample to potentially diagnosis molar and further guide ongoing treatment. She will likely then be discharged home but, prior to discharge, will receive methotrexate 50 mg/m intramuscularly 1 as, regardless of the location of the , this is a failing . The risks and complications of both D&C as well as methotrexate have been thoroughly discussed with the patient. This specifically increased risk for bleeding, bleeding or cramping transfusion, infection, and injury to local structures to primarily include uterine perforation and Asherman's syndrome. I discussed the specific risk of methotrexate to be liver function abnormalities as well as central issues with hemoglobin and platelets. The primary most common complication would involve soreness of the tongue or tongue lesions. She has understood all of these concerns and agreed to proceed with the plan as outlined above. All of the appropriate labs have been ordered and she will have follow-up laboratory done at the appropriate time over the next week for single dose methotrexate treatment.
[2020-03-16 16:55] LABS: ALT 20 U/L (4-34); AST 26 U/L (14-36)
[2020-03-16] MEDS ORDERED: PROPOFOL 10 MG/ML 20 ML VIAL IV ONE (18:57)
[2020-03-16] MEDS ORDERED: fentaNYL (PF) 50 MCG/ML 2 ML AMP ONE (18:57)
[2020-03-16] MEDS ORDERED: DEXAMETHASONE SOD PHOSPHATE 4 MG/ML 1 ML VIAL ONE (18:57)
[2020-03-16] MEDS ORDERED: KETOROLAC 15 MG/ML 1 ML VIAL ONE (18:57)
[2020-03-16] MEDS ORDERED: ONDANSETRON 4 MG/2 ML VIAL ONE (18:57)
[2020-03-16] MEDS ORDERED: MIDAZOLAM 2 MG/2 ML VIAL ONE (18:57)
[2020-03-16] MEDS ORDERED: SIMETHICONE 80 MG CHEWABLE PO PRN (19:21)
[2020-03-16] MEDS ORDERED: METOCLOPRAMIDE 5 MG/ML 2 ML VIAL IVP PRN (19:21)
[2020-03-16] MEDS ORDERED: KETOROLAC 15 MG/ML 1 ML VIAL IVP PRN (19:21)
[2020-03-16] MEDS ORDERED: IBUPROFEN 600 MG TAB PO PRN (19:21)
[2020-03-16] MEDS ORDERED: ONDANSETRON 4 MG/2 ML VIAL IVP PRN (19:21)
[2020-03-16] MEDS ORDERED: diphenhydrAMINE 50 MG/ML 1 ML VIAL IVP PRN (19:21)
[2020-03-16] MEDS ORDERED: Acetaminophen-Codeine 300-30mg TAB PO PRN ×2 (19:21)
[2020-03-16] MEDS ORDERED: LACTATED RINGERS 1,000 ML IV SCH (19:30)
--- NOTE | 2020-03-16 19:30 | P.OP ---
Date of Procedure: 03/16/20 Preoperative Diagnosis: #1. Incomplete versus ectopic Postoperative Diagnosis: same Procedure(s) Performed: #1. Dilation and aspiration curettage Anesthesia: other (Gen. by LMA) Surgeon: Win Yuan Estimated Blood Loss (ml): 50 IV fluids (ml): 100 Urine output (ml): 10 Pathology: other (intrauterine contents) Condition: stable Disposition: PACU Operative Findings: preoperative pelvic examination demonstrated a roughly 5 week anteverted mobile normal shaped uterus with normal adnexa bilaterally. intraoperatively, the uterus sounded to9 cm. Minimal tissue was seen passing through the tubing on the first pass and the typical gritty texture was encountered with sharp curettage. Description of Procedure: The patient was prepped and draped in usual fashion after general anesthesia was established by the anesthesiologist. The bladder was drained of approximately 10 mL of clear shawnee urine. The anterior lip of the cervix was grasped with a single-tooth tenaculum and uterus sounded to 9 cm as noted above. Serial dilation was carried out to admit a #8 curved aspiration curet which was placed to the fundus of the uterus and suction applied. After building adequate jauregui ction, careful and thorough circumferential suction was carried out from the fundus of the uterus to the cervix with a small amount of tissue seen passing through the tubing on the first pass. The second pass produced no further tissue. The aspiration curet was set aside for a medium sharp curet which was again utilized to thoroughly and circumferentially curet the uterus at which time the typical gritty texture was noted and there was minimal to no tissue returned. A third pass was made with the aspiration curet at which time there was no tissue seen. All instrumentation was removed from the patient. A small point of bleeding at one of the tenaculum sites was made hemostatic with pressure. Estimated blood loss for the case was 50 mL or less. There were no complications. All sponge, instrument, and needle counts were correct. The patient tolerated the procedure well and proceeded to the recovery room in stable condition.
[2020-03-16] MEDS ORDERED: HYDROmorphone 0.5 MG/0.5 ML SYRINGE IVP ONE (19:32)
[2020-03-16] MEDS ORDERED: METHOTREXATE SODIUM (PF) 25 MG/ML 2 ML VIAL IM ONE (20:00)
[2020-03-17 02:38] VITALS: RESP 18
[2020-03-17 02:39] VITALS: BP 96/63; PULSE 96; TEMP 98.7
== END 2020-03-16 23:55 | disposition home or self-care (01) ==
LOC: EC 12:30 → 6PED 14:53 → 6NMEDSUR 20:35 → 6PED 20:41
PROVIDERS: ADMIT Obstetrics & Gynecology; ATTEND Obstetrics & Gynecology
DX: O02.0 Blighted ovum and nonhydatidiform mole (principal); N83.209 Unspecified ovarian cyst, unspecified side; O03.9 Complete or unspecified spontaneous abortion without complication; O46.90 Antepartum hemorrhage, unspecified, unspecified trimester
CPT/HCPCS: 96361; 96374; 99285; 36415; 88305; 80048; 84450; 84460; 85025; 81001; 84702; 76801; 76817; 59820; G0378; J2250; J1100; J9260; J2405; J3010; J1885; J2704; J1170

== ENCOUNTER → 2020-03-20 | Outpatient (CLI) | payer BC | END | disposition home or self-care (01) | LOC: LABWHC1 11:07 | PROVIDERS: ATTEND Obstetrics & Gynecology | DX: O02.1 Missed abortion (principal) | CPT/HCPCS: 36415; 84702 ==

== ENCOUNTER → 2020-03-23 | Outpatient (CLI) | payer BC ==
[2020-03-23 13:06] LABS: HGB 11.9 gm/dL (11.4-16.0); MCH 29.5 pg (25.0-35.0); MCHC 31.3 g/dL (31.0-37.0); MCV 94.2 fL (80.0-100.0); Mean Platelet Volume 7.5; Platelet Count 256 k/uL (150-450); RBC 4.03 m/uL (3.80-5.40); RDW 13.6 % (11.5-15.5); WBC 5.4 k/uL (3.8-10.6)
[2020-03-23 13:08] LABS: ALT 41 U/L (4-34); AST 30 U/L (14-36); African American GFR (CKD) >90 (>60 ml/min/1.73 sqM); Blood Urea Nitrogen 14 mg/dL (7-17); Non-African American GFR(CKD) >90 (>60 ml/min/1.73 sqM)
[2020-03-23 13:25] LABS: HCG,Quantitative Serum 1134.7 mIU/mL
== END | disposition home or self-care (01) ==
LOC: LABMAIN 11:49
PROVIDERS: ATTEND Obstetrics & Gynecology
DX: O02.1 Missed abortion (principal)
CPT/HCPCS: 36415; 82565; 84450; 84460; 84520; 84702; 85027

== ENCOUNTER 2021-01-17 23:00 | Outpatient (CLI) | payer BC ==
[2021-01-18 00:47] VITALS: BP 128/64; PULSE 106; RESP 16; TEMP 97.9
--- NOTE | 2021-01-30 11:44 | P.MSEPDOC ---
Presenting Problems - Arrival Data Date of Arrival on Unit: 01/17/21 Time of Arrival on Unit: 23:00 Mode of Transport: Ambulatory - Complaint OB-Reason for Admission/Chief Complaint: Possible Onset of Labor, Rule Out SROM Comment: cramping since 1700, had discharge in underware at 1700 Medical History - Information : 3 Para: 1 Term: 1 : 0 Abortions: Spontaneous or Elective: 1 Number of Living Children: 1 - Gestational Age Gestational Age by DERICK (wks/days): 37 Weeks and 6 Days Review of Systems - Review of Systems Constitutional: No problems Breast: No problems ENT: No problems Cardiovascular: No problems Respiratory: No problems Gastrointestinal: No problems Genitourinary: No problems Musculoskeletal: No problems Neurological: No problems Skin: No problems Vital Signs - Temperature Temperature: 97.9 F Temperature Source: Oral - Pulse Right Sitting Pulse Rate: 106 Pulse Assessment Method: Automatic Cuff - Respirations Respiratory Rate: 16 Oxygen Delivery Method: Room Air O2 Sat by Pulse Oximetry: 97 - Blood Pressure Right Arm Sitting Blood Pressure: 128/64 Blood Pressure Mean: 85 Blood Pressure Source: Automatic Cuff Medical Screen Scoring - Cervical Exam Dilation (cm): 3 Effacement (%): 40 Station: -3 Membranes: Intact - Uterine Contractions Frequency From (mins): 1 Frequency To (mins): 7 Duration From (seconds): 40 Duration To (seconds): 80 Intensity: Moderate Resting: Soft to palpation - Assessment - Baby A Heart Rate - NICHD Category: Category I (Normal) Physician Notification - Physician Notified Physician Notified Date: 01/18/21 Physician Notified Time: 00:23 Physician: Win Yuan Order Received: Yes (d/c home) - Notification Comment Comment: pt is to keep sced apt for 01/20 Maternal Triage Index - Maternal Triage Index Presenting for scheduled procedure w/no complaint: No - Stat/Priority 1 Stat Priority 1: No - Urgent/Priority 2 Urgent Priority 2: No - Prompt/Priority 3 Prompt Priority 3: No - Non-Urgent/Priority 4 Non-Urgent Priority 4: Yes Criteria Met for Priority 4: called at 0023. notified of maternal and status, negative amnisure Disposition - Disposition OB Disposition: Discharge to home, Written follow up instructions reviewed Discharge Date: 01/18/21 Discharge Time: 00:30 I agree with the RN Medical Screening Exam: Yes Physician's MSE Comment: I have neither seen nor examined the patient. Case reviewed; plan agreed upon as documented in EMR&OBIX.: Yes Diagnosis: RELATED CONDITIONS, UNSPECIFIED, THIRD TRIMESTER
== END 2021-01-18 00:30 | disposition home or self-care (01) ==
LOC: FBPOP 23:00
PROVIDERS: ATTEND Obstetrics & Gynecology
DX: O62.9 Abnormality of forces of labor, unspecified (principal); Z3A.37 37 weeks gestation of pregnancy
CPT/HCPCS: 59025; 84112; 99213

== ENCOUNTER 2021-01-26 06:19 | Inpatient (IN) | payer BC ==
[2021-01-26] MEDS ORDERED: METHYLERGONOVINE 0.2 MG/ML 1 ML AMP IM PRN (06:29)
[2021-01-26] MEDS ORDERED: TERBUTALINE 1 MG/ML VIAL SQ PRN (06:29)
[2021-01-26] MEDS ORDERED: LIDOCAINE 0.5% (PF) 5 MG/ML (50 ML SDV) SQ PRN (06:29)
[2021-01-26] MEDS ORDERED: OXYTOCIN 10 UNIT/ML 1 ML VIAL IM PRN (06:29)
[2021-01-26] MEDS ORDERED: CARBOPROST TROMETHAMINE 250 MCG/ML 1 ML AMP IM PRN (06:29)
[2021-01-26] MEDS ORDERED: OXYTOCIN 30 UNITS/500 ML NS 30 UNIT in SALINE 1 500ML.BAG IV SCH ×2 (06:30→12:45)
[2021-01-26] MEDS: LACTATED RINGERS 1,000 ML IV SCH ×2 (06:44→09:23)
[2021-01-26 06:56] LABS: Basophils % (A) 0 %; Eosinophils # (A) 0.1 k/uL (0-0.7); Eosinophils % (A) 1 %; HCT 30.2 % (34.0-46.0); HGB 10.1 gm/dL (11.4-16.0); Hypochromasia Slight; Lymphocytes # (A) 2.3 k/uL (1.0-4.8); Lymphocytes % (A) 27 %; MCH 27.9 pg (25.0-35.0); MCHC 33.6 g/dL (31.0-37.0); MCV 83.1 fL (80.0-100.0); Mean Platelet Volume 9.6; Monocytes # (A) 0.4 k/uL (0-1.0); Monocytes % (A) 5 %; Neutrophils # (A) 5.4 k/uL (1.3-7.7); Neutrophils % (A) 65 %; Platelet Count 262 k/uL (150-450); RBC 3.63 m/uL (3.80-5.40); RDW 15.5 % (11.5-15.5); WBC 8.3 k/uL (3.8-10.6)
[2021-01-26] MEDS ORDERED: SODIUM CHLORIDE 0.9% 100 ML BAG ONE (08:55)
[2021-01-26] MEDS ORDERED: ROPIVACAINE 5MG/ML 20ML VIAL ONE (08:55)
[2021-01-26] MEDS ORDERED: fentaNYL (PF) 50 MCG/ML 5 ML AMP ONE (08:55)
[2021-01-26] MEDS ORDERED: ROPIVACAINE 100 MG, fentaNYL (PF). 200 MCG in SODIUM CHLORIDE 0.9% 76 ML EPIDURAL ONE (09:41)
--- NOTE | 2021-01-26 11:29 | P.HPOB ---
History of Present Illness H&P Date: 01/26/21 Chief Complaint: 39-0/7 weeks, elective induction The patient is a 30-year-old 4 para 0121 admitted at 39-0/7 weeks as established by last menstrual period and confirmed by 8 week ultrasound. She is admitted for elective induction of labor with all signs reassuring. Her has been uncomplicated and group B strep status is negative. She is known to be Rh- and received RhoGAM at 28 weeks. She additionally has a history of delivery had approximately 36+ weeks in her first which has not been concerned during this . Group B strep status is negative. Obstetrical history: 4 para 0121 with current statistics listed in history present illness. EDC of 02/02/2021 was established by last menstrual period and confirmed by 8 week ultrasound. Laboratory workup demonstrates a blood type of O- with a negative antibody screen. Rubella status is immune. The remainder of the laboratory workup was within normal limits. One hour Glucola was elevated was followed by a normal three-hour glucose tolerance test though it was not quite completed secondary to nausea and vomiting. The patient has no history of diabetes. Group B strep status is negative. Gynecologic history: Unremarkable with no history of any infections to include STDs. Review of Systems Review of systems is confined to history of present illness. Past Medical History Past Medical History: GERD/Reflux Additional Past Medical History / Comment(s): endometriosis, blood in stool, anemia, History of Any Multi-Drug Resistant Organisms: None Reported Additional Past Surgical History / Comment(s): ovarian cyst removal, d&c Past Anesthesia/Blood Transfusion Reactions: No Reported Reaction Past Psychological History: No Psychological Hx Reported Smoking Status: Never smoker Past Alcohol Use History: None Reported Past Drug Use History: None Reported - Past Family History Mother Family Medical History: No Reported History Additional Family Medical History / Comment(s): blood clot "in her head" Medications and Allergies Home Medications Medication Instructions Recorded Confirmed Type Pnv No.95/Ferrous Fum/Folic AC 1 each PO DAILY 01/26/21 01/26/21 History [ Multivitamin Tablet] Allergies Allergy/AdvReac Type Severity Reaction Status Date / Time No Known Allergies Allergy Verified 01/26/21 06:29 Exam Vital Signs Temp Pulse Resp BP 01/26/21 06:37 97.2 F L 86 18 131/70 Intake and Output 01/25/21 01/26/21 01/26/21 22:59 06:59 14:59 Other: Weight 82.554 kg In general, this is a well-developed, well-nourished white female in no acute distress. Her heart has regular rhythm and rate without murmur. Her lungs are clear to auscultation bilaterally in all gee. Her abdomen is gravid, nondistended, has normal active bowel sounds, is soft, nontender, and without any palpable masses aside from uterine fundus. Her extremities are without cyanosis, clubbing, or edema and are nontender to palpation bilaterally. Digital cervical examination at the time of admission demonstrates her cervix to be approximately 3-4 cm dilated, approximately 60% effaced, the vertex in presentation at -2 station. Artificial rupture of membranes is carried out demonstrating copious clear fluid. Results Result Diagrams: 01/26/21 06:37 Abnormal Lab Results - Last 24 Hours (Table) 01/26/21 Range/Units 06:37 RBC 3.63 L (3.80-5.40) m/uL Hgb 10.1 L (11.4-16.0) gm/dL Hct 30.2 L (34.0-46.0) % Assessment and Plan (1) Term Current Visit: Yes Status: Acute Code(s): Z34.90 - ENCNTR FOR SUPRVSN OF NORMAL , UNSP, UNSP TRIMESTER SNOMED Code(s): 13269953 Plan: The patient is admitted for elective induction of labor understanding the possibly slightly increased risk for delivery versus allowing to occur naturally. Pitocin augmentation has been started and she has undergone artificial rupture of membranes. She will have close maternal and surveillance and expectant management will be practiced. She is a good candidate for either IV or epidural analgesia, whichever she may choose.
--- NOTE | 2021-01-26 12:10 | P.PROBDLV ---
Vaginal Delivery Note - . Vaginal Delivery Note: The patient is a 30-year-old 4 para 1021 admitted at 39-0/7 weeks by good dating parameters. She is admitted for an elective induction with all signs reassuring. Her has been uncomplicated and group B strep status is negative. She is known to be Rh- and received RhoGAM at 28 weeks. On labor and delivery, she had Pitocin started and underwent artificial rupture of membranes of a significant amount of clear fluid. She made fairly quick progress and the active phase and had an epidural catheter placed for analgesia. She then progressed quickly through the active phase of labor to complete and pushed over the course of approximate 3-4 contractions to a normal spontaneous vaginal delivery of a viable 8 lbs. 4 oz. baby boy with Apgars of 9 at 1 minute and 9 at 5 minutes delivered in the direct occiput anterior position. There was a loose nuchal cord 1 which was reduced following delivery of the . The placenta was delivered spontaneously, intact, and grossly normal though it was noted to be bilobed with the cord insertion directly at the margin of the discs where the 2 lobes adjoined. There was additionally in excess 3 cotyledon noted in the cord insertion was velamentous in nature with an otherwise grossly normal three-vessel cord. There was a small second-degree midline perineal laceration which was repaired in standard fashion using 3-0 chromic catgut without difficulty. Estimated blood loss for the case was approximately 200 mL. There were no complications. All sponge, instrument, and needle counts were correct. Both mother and are resting comfortably in recovery.
[2021-01-26] MEDS ORDERED: diphenhydrAMINE 25 MG CAP PO PRN (12:44)
[2021-01-26] MEDS ORDERED: HYDROcodone/APAP 5-325MG 1 EACH TAB PO PRN (12:44)
[2021-01-26] MEDS ORDERED: BENZOCAINE/MENTHOL SPRAY 1 GM/SPRAY AEROSOL TOPICAL PRN (12:44)
[2021-01-26] MEDS ORDERED: diphenhydrAMINE 50 MG CAP PO PRN (12:44)
[2021-01-26] MEDS ORDERED: HYDROCORTISONE 2.5% RECTAL CREAM 30 GM TUBE RECTAL PRN (12:44)
[2021-01-26] MEDS ORDERED: ACETAMINOPHEN TAB 325 MG TAB PO PRN (12:44)
[2021-01-26] MEDS ORDERED: diphenhydrAMINE 50 MG/ML 1 ML VIAL IVP PRN ×2 (12:44)
[2021-01-26] MEDS ORDERED: SIMETHICONE 80 MG CHEWABLE PO PRN (12:44)
[2021-01-26] MEDS ORDERED: LANOLIN CREAM 5 GM TUBE TOPICAL PRN (12:44)
[2021-01-26] MEDS ORDERED: HYDROcodone/APAP 7.5-325MG 1 EACH TAB PO PRN (12:44)
[2021-01-26] MEDS ORDERED: ZOLPIDEM 5 MG TAB PO PRN (12:44)
[2021-01-26] MEDS: IBUPROFEN 600 MG TAB PO SCH ×3 (12:52→19:53)
[2021-01-26] MEDS: SENNOSIDES-DOCUSATE SODIUM 1 EACH TAB PO SCH (19:52)
[2021-01-27] MEDS: LACTATED RINGERS 1,000 ML IV SCH (03:58)
[2021-01-27] MEDS: IBUPROFEN 600 MG TAB PO SCH ×2 (05:50→12:27)
[2021-01-27 06:15] LABS: Basophils % (A) 0 %; Eosinophils # (A) 0.1 k/uL (0-0.7); Eosinophils % (A) 1 %; HCT 29.1 % (34.0-46.0); HGB 9.5 gm/dL (11.4-16.0); Hypochromasia Moderate; Lymphocytes # (A) 2.8 k/uL (1.0-4.8); Lymphocytes % (A) 26 %; MCH 28.1 pg (25.0-35.0); MCHC 32.8 g/dL (31.0-37.0); MCV 85.7 fL (80.0-100.0); Monocytes # (A) 0.7 k/uL (0-1.0); Monocytes % (A) 6 %; Neutrophils # (A) 7.1 k/uL (1.3-7.7); Neutrophils % (A) 65 %; Platelet Count 230 k/uL (150-450); RBC 3.39 m/uL (3.80-5.40); RDW 15.5 % (11.5-15.5); WBC 10.9 k/uL (3.8-10.6)
[2021-01-27] MEDS: SENNOSIDES-DOCUSATE SODIUM 1 EACH TAB PO SCH (07:41)
--- NOTE | 2021-01-27 08:58 | P.DS ---
Providers Date of admission: 01/26/21 06:19 Expected date of discharge: 01/27/21 Attending physician: Win Yuan Primary care physician: Stated None - Discharge Diagnosis(es) (1) Term Current Visit: Yes Status: Acute (2) Normal spontaneous vaginal delivery Current Visit: Yes Status: Acute Hospital Course: The patient is a 30-year-old 4 para 0121 admitted at 39-0/7 weeks by good dating parameters perches admitted for an elective induction with all signs reassuring. Her was uncomplicated though she was Rh- and received RhoGAM at 28 weeks. On labor and delivery, she had Pitocin started followed by artificial rupture of membranes. She had an epidural catheter placed for analgesia and made fairly quick progress to complete where after she pushed to a normal spontaneous vaginal delivery of a viable 8 lbs. 4 oz. baby boy with Apgars of 9 at 1 minute and 9 at 5 minutes. Her course was unremarkable with vital signs remaining stable and her temperature was afebrile throughout. She was deemed stable for discharge on day #1 was discharged home to follow-up in the office in 6 weeks' time routinely. Discharge instructions included calling for any significantly increased bleeding or foul-smelling lochia, significantly increased fever abdominal pain, perineal complaints, breast complaints, or anything else that concerned her. She was additionally instructed to have nothing in the vagina for at least 6 weeks time to include intercourse. She understood her instructions and agrees to follow up as noted above. Discharge medications included continued vitamins as she has opted to breast-feed. She was otherwise to use [id number] analgesic pain medications as necessary. Maternal blood type is O- and cord blood was sent for evaluation for the necessity of RhoGAM prior to discharge. Rubella status is immune. Procedures: #1. Pitocin induction #2. Artificial rupture of membranes #3. Epidural analgesia 4. Normal spontaneous vaginal delivery #5. Repair of perineal laceration Patient Condition at Discharge: Stable Plan - Discharge Summary New Discharge Prescriptions: No Action Pnv No.95/Ferrous Fum/Folic AC [ Multivitamin Tablet] 1 each PO DAILY Discharge Medication List Pnv No.95/Ferrous Fum/Folic AC [ Multivitamin Tablet] 1 each PO DAILY 01/26/21 [History] Follow up Appointment(s)/Referral(s): Win Yuan MD [STAFF PHYSICIAN] - 2 Weeks Discharge Disposition: HOME SELF-CARE
[2021-01-28] MEDS: IBUPROFEN 600 MG TAB PO SCH (00:27)
[2021-01-28 09:24] VITALS: BP 115/78; PULSE 65; RESP 16; TEMP 98.2
== END 2021-01-28 11:30 | disposition home or self-care (01) | DRG 807 ==
LOC: 4FBP 06:19
PROVIDERS: ADMIT Obstetrics & Gynecology; ATTEND Obstetrics & Gynecology
PROC: 10907ZC Drainage of Amniotic Fluid, Therapeutic from Products of Conception, Via Natural or Artificial Opening (ICD-10-PCS; principal; 2021-01-26)
PROC: 10E0XZZ Delivery of Products of Conception, External Approach (ICD-10-PCS; 2021-01-26)
PROC: 0KQM0ZZ Repair Perineum Muscle, Open Approach (ICD-10-PCS; 2021-01-26)
PROC: 3E033VJ Introduction of Other Hormone into Peripheral Vein, Percutaneous Approach (ICD-10-PCS; 2021-01-26)
DX: O69.81X0 Labor and delivery complicated by cord around neck, without compression, not applicable or unspecified (principal); Z37.0 Single live birth; O70.1 Second degree perineal laceration during delivery; Z3A.39 39 weeks gestation of pregnancy; O99.62 Diseases of the digestive system complicating childbirth; K21.9 Gastro-esophageal reflux disease without esophagitis; N80.9 Endometriosis, unspecified
CPT/HCPCS: 85025; 86850; 86900; 86901; 88307

== ENCOUNTER → 2024-07-23 | Outpatient (CLI) | payer BC ==
--- NOTE | 2024-07-23 10:01 | CT ---
EXAMINATION TYPE: CT sinus wo con DATE OF EXAM: 07/23/2024 8:44 AM COMPARISON: None. CLINICAL INDICATION: Female, 33 years old with history of R43.1 PAROSMIA, Parosmia x 1 year, hx Covid , TECHNIQUE: Noncontrast axial views of the paranasal sinuses were obtained. Coronal and sagittal refor matted images were obtained from the axial views for evaluation of nasal cavity, osteomeatal complex and skull base integrity. CT DLP: 506 mGycm, Automated exposure control for dose reduction was used. FINDINGS: PARANASAL SINUSES: Trace mucosal thickening left sphenoid sinus. Otherwise, the frontal, ethmoid, and maxillary sinuses are clear and well pneumatized. There is no other mucosal thickening or air-fluid level. Reactive karina- osteogenesis is not seen. There is no destruction of the osseous martinez of the paranasal sinuses. THE NASAL CAVITY: The osteomeatal complexes are patent. Minimal leftward bowing of the nasal septum. The imaged brain and orbits are normal in appearance. Mastoid air cells and middle ear cavities are well pneumatized. Reformatted images confirm above findings. IMPRESSION: Only trace mucosal thickening seen in the left sphenoid sinus. Otherwise, no significant paranasal si nus disease. [facility], Workstation: [id number], 07/23/2024 9:59 AM
== END | disposition home or self-care (01) ==
LOC: RADCTMAIN 08:30
PROVIDERS: ATTEND Otolaryngology
DX: J34.89 Other specified disorders of nose and nasal sinuses (principal); R43.1 Parosmia
CPT/HCPCS: 70486